=== PATIENT | male | born 1955 | race Caucasian/White ===

== ENCOUNTER 2019-11-24 09:37 | Emergency (ER) | payer MEDICARE, BC, OTHER ==
--- NOTE | 2019-11-24 09:50 | EDM.PDOC ---
ED HPI GENERAL MEDICAL PROBLEM - General Chief Complaint: Respiratory Problem Stated Complaint: SOB Time Seen by Provider: 11/24/19 09:48 - History of Present Illness INITIAL COMMENTS - FREE TEXT/NARRATIVE: 64-year-old male presents the emergency room with chest pain and shortness of breath. Patient does not have any prior coronary artery disease problems he does have hyperlipidemia. The patient awoke this morning with shortness of breath and chest discomfort chest discomfort is brought on by leaning forward and other positional changes. The patient has COPD and has a longstanding smoking history. He has a greater than [id number] history. The chest discomfort he describes is more of a pressure sensation underneath his sternum. This does not seem to radiate into his jaw or arms or elsewhere. The patient has used Viagra last used Thursday or Thursday now greater than 48 hours ago. Patient's family history is significant for valvular heart disease with an aortic valve replacement in his father and an aortic valve replacement in 1 of his sisters. The patient has good longevity in his family however he is the only smoker. Bilateral Chest Pain Score (Numeric/FACES): 7 - Related Data Allergies Allergy/AdvReac Type Severity Reaction Status Date / Time Sulfa (Sulfonamide Allergy Rash Verified 11/24/19 09:48 Antibiotics) Home Meds: Home Meds Albuterol Sulfate 1 dose INH QID PRN 11/24/19 [History] Fluticasone Propion/Salmeterol [Advair 250-50 Diskus] 1 puff INH BID 11/24/19 [ History] Fluticasone/Salmeterol [Advair 250-50] 1 puff INH BID #1 diskus 11/24/19 [Rx] Tiotropium [Spiriva HandiHaler] 1 puff INH DAILY 11/24/19 [History] atorvaSTATin [Lipitor] 10 mg PO DAILY 11/24/19 [History] ED ROS GENERAL - Review of Systems Review Of Systems: See Below Constitutional: Reports: No Symptoms HEENT: Reports: No Symptoms Respiratory: Reports: Shortness of Breath Cardiovascular: Reports: Chest Pain. Denies: Dyspnea on Exertion, Edema Endocrine: Reports: No Symptoms GI/Abdominal: Reports: Abdominal Pain (Has some upper abdominal discomfort) : Reports: No Symptoms Musculoskeletal: Reports: No Symptoms Skin: Reports: No Symptoms Neurological: Reports: No Symptoms ED EXAM, GENERAL - Physical Exam Exam: See Below Exam Limited By: No Limitations General Appearance: Alert, No Apparent Distress Eye Exam: Bilateral Eye: Normal Inspection, PERRL Ears: Normal External Exam, Normal Canal, Hearing Grossly Normal, Normal TMs Nose: Normal Inspection, Normal Mucosa, No Blood Throat/Mouth: Normal Inspection, Normal Lips, Normal Teeth, Normal Gums, Normal Oropharynx, Normal Voice, No Airway Compromise Head: Atraumatic, Normocephalic Neck: Normal Inspection, Supple, Non-Tender, Full Range of Motion, Other (No JVD ). No: Lymphadenopathy (L), Lymphadenopathy (R) Respiratory/Chest: No Respiratory Distress, Decreased Breath Sounds. No: Crackles, Rales, Rhonchi, Wheezing Cardiovascular: Regular Rate, Rhythm, Other (Very distant heart sounds no obvious murmur) GI/Abdominal: Normal Bowel Sounds, Soft, Other (Has some discomfort at the insertion of the abdominal wall musculature on the anterior and anterior lateral ribs) Back Exam: Normal Inspection. No: CVA Tenderness (L), CVA Tenderness (R) Extremities: Normal Inspection, No Pedal Edema Neurological: Alert, Oriented, Normal Cognition Course - Vital Signs Last Recorded V/S: Last Vital Signs Temp 36.3 C 11/24/19 09:44 Pulse 91 11/24/19 09:44 Resp 22 H 11/24/19 09:44 BP 140/89 11/24/19 10:21 Pulse Ox 88 L 11/24/19 09:44 - Orders/Labs/Meds Orders: Active Orders 24 hr Category Date Time Status EKG 12 Lead [EKG Documentation Completion] [RC] STAT Care 11/24/19 09:57 Active Ready for Discharge [RC] PER UNIT ROUTINE Care 11/24/19 14:58 Active Lactated Ringers [Ringers, Lactated] 1,000 ml Med 11/24/19 10:15 Active IV ASDIRECTED Nitroglycerin [Nitrostat] Med 11/24/19 10:08 Active 0.4 mg SL Q5M PRN Sodium Chloride 0.9% [Saline Flush] Med 11/24/19 10:01 Active 10 ml FLUSH ASDIRECTED PRN Saline Lock Insert [OM.PC] Routine Oth 11/24/19 10:01 Ordered Medication Orders Lactated Ringer's (Ringers, Lactated) 1,000 mls @ 25 mls/hr IV ASDIRECTED NIKI Last Admin: 11/24/19 10:18 Dose: 25 mls/hr Nitroglycerin (Nitrostat) 0.4 mg SL Q5M PRN PRN Reason: Chest Pain Last Admin: 11/24/19 10:21 Dose: 0.4 mg Sodium Chloride (Saline Flush) 10 ml FLUSH ASDIRECTED PRN PRN Reason: Keep Vein Open Last Admin: 11/24/19 10:02 Dose: 10 ml Labs: Laboratory Tests 11/24/19 11/24/19 11/24/19 Range/Units 09:50 09:50 09:50 WBC 11.69 H (4.23-9.07) K/mm3 RBC 5.83 (4.63-6.08) M/mm3 Hgb 17.3 (13.7-17.5) gm/dl Hct 51.3 H (40.1-51.0) % MCV 88.0 (79.0-92.2) fl MCH 29.7 (25.7-32.2) pg MCHC 33.7 (32.2-35.5) g/dl RDW Std Deviation 41.6 (35.1-43.9) fL Plt Count 302 (163-337) K/mm3 MPV 10.9 (9.4-12.3) fl Neut % (Auto) 73.4 H (34.0-67.9) % Lymph % (Auto) 17.4 L (21.8-53.1) % Barnwell % (Auto) 6.8 (5.3-12.2) % Eos % (Auto) 1.5 (0.8-7.0) Baso % (Auto) 0.3 (0.1-1.2) % Neut # (Auto) 8.57 H (1.78-5.38) K/mm3 Lymph # (Auto) 2.03 (1.32-3.57) K/mm3 Barnwell # (Auto) 0.80 (0.30-0.82) K/mm3 Eos # (Auto) 0.18 (0.04-0.54) K/mm3 Baso # (Auto) 0.04 (0.01-0.08) K/mm3 PT 10.3 (9.7-12.0) SECONDS INR 0.94 APTT 28 (22-31) SECONDS D-Dimer, Quantitative 0.32 (0.19-0.50) mg/L Sodium 141 (136-145) mEq/L Potassium 4.4 (3.5-5.1) mEq/L Chloride 105 (98-107) mEq/L Carbon Dioxide 29 (21-32) mEq/L Anion Gap 11.4 (5-15) BUN 12 (7-18) mg/dL Creatinine 0.9 (0.7-1.3) mg/dL Est Cr Clr Drug Dosing 81.83 mL/min Estimated GFR (MDRD) > 60 (>60) mL/min BUN/Creatinine Ratio 13.3 L (14-18) Glucose 130 H (80-115) mg/dL Calcium 9.1 (8.5-10.1) mg/dL Total Bilirubin 0.5 (0.2-1.0) mg/dL AST 23 (15-37) U/L ALT 30 (16-63) U/L Alkaline Phosphatase 47 (46-116) U/L Troponin I < 0.017 (0.00-0.056) ng/mL Total Protein 7.5 (6.4-8.2) g/dl Albumin 4.2 (3.4-5.0) g/dl Globulin 3.3 gm/dL Albumin/Globulin Ratio 1.3 (1-2) Meds: Medications Generic Name Dose Route Start Last Admin Trade Name Freq PRN Reason Stop Dose Admin Lactated Ringer's 1,000 mls @ 25 mls/hr 11/24/19 10:15 11/24/19 10:18 Ringers, Lactated IV 25 mls/hr ASDIRECTED NIKI Administration Nitroglycerin 0.4 mg 11/24/19 10:11/24/19 10:21 Nitrostat SL 0.4 mg Q5M PRN Administration Chest Pain Sodium Chloride 10 ml 11/24/19 10:01 11/24/19 10:02 Saline Flush FLUSH 10 ml ASDIRECTED PRN Administration Keep Vein Open Discontinued Medications Generic Name Dose Route Start Last Admin Trade Name Freq PRN Reason Stop Dose Admin Aspirin 324 mg 11/24/19 10:08 11/24/19 10:18 Aspirin PO 11/24/19 10:09 324 mg ONETIME ONE Administration Lidocaine HCl Confirm 11/24/19 11:00 Xylocaine 1% Administered 11/24/19 11:01 Dose 50 ml .ROUTE .[facility] ONE - Re-Assessments/Exams Free Text/Narrative Re-Assessment/Exam: 11/24/19 10:53 Patient's troponin is normal as is his d-dimer chest x-ray shows a significant left-sided pneumothorax. The patient is stable at this point. Dr. Clements is in surgery. If the patient decompensates I can put a chest tube in otherwise Dr. Clements will be in the department to see another patient here shortly. 11/24/19 11:50 Dr. Clements did evaluate the patient and assumed care patient had a pigtail catheter put in and the patient will be observed 11/24/19 14:49 Tyree placed a pigtail catheter and inflated the lung. The catheter was removed and follow-up chest x-ray shows a fully inflated lung the patient will be discharged. 11/24/19 14:59 The patient has requested Advair refill I did send this to [facility] Departure - Departure Time of Disposition: 11:52 Disposition: Home, Self-Care 01 Clinical Impression: Pneumothorax, left - Discharge Information Prescriptions: Fluticasone/Salmeterol [Advair 250-50] 1 puff INH BID #1 diskus Instructions: Pneumothorax Referrals: PCP,Not In Area [Primary Care Provider] - Forms: ED Department Discharge Additional Instructions: Return to the emergency room with any questions problems or worsening symptoms. Seek immediate medical care if symptoms return. No strenuous activity for the next week. Sepsis Event Note - Evaluation Sepsis Screening Result: Possible Sepsis Risk - Focused Exam Vital Signs: Vital Signs Temp Pulse Resp BP BP Pulse Ox 11/24/19 10:21 140/89 11/24/19 09:44 36.3 C 91 22 H 144/92 H 88 L Date Exam was Performed: 11/24/19 Time Exam was Performed: 14:59 - My Orders Last 24 Hours: My Active Orders 11/24/19 09:57 EKG 12 Lead [EKG Documentation Completion] [RC] STAT 11/24/19 10:01 Sodium Chloride 0.9% [Saline Flush] 10 ml FLUSH ASDIRECTED PRN Saline Lock Insert [OM.PC] Routine 11/24/19 10:08 Nitroglycerin [Nitrostat] 0.4 mg SL Q5M PRN 11/24/19 10:15 Lactated Ringers [Ringers, Lactated] 1,000 ml IV ASDIRECTED - Assessment/Plan Last 24 Hours: My Active Orders 11/24/19 09:57 EKG 12 Lead [EKG Documentation Completion] [RC] STAT 11/24/19 10:01 Sodium Chloride 0.9% [Saline Flush] 10 ml FLUSH ASDIRECTED PRN Saline Lock Insert [OM.PC] Routine 11/24/19 10:08 Nitroglycerin [Nitrostat] 0.4 mg SL Q5M PRN 11/24/19 10:15 Lactated Ringers [Ringers, Lactated] 1,000 ml IV ASDIRECTED
[2019-11-24] MEDS ORDERED: Sodium Chloride 0.9% 10 ML Syringe FLUSH PRN (10:01)
[2019-11-24] MEDS ORDERED: Aspirin 81 MG Tab.Chew PO ONE (10:08)
[2019-11-24] MEDS ORDERED: Nitroglycerin 0.4 MG Tab.SL SL PRN (10:08)
[2019-11-24] MEDS ORDERED: Lactated Ringers 1,000 ML IV SCH (10:15)
--- NOTE | 2019-11-24 10:29 | CR ---
Chest: Portable view of the chest was obtained. Comparison: No prior chest x-ray. Heart size and mediastinum are normal. Moderately large left sided pneumothorax is seen. Small amount of pleural fluid is also noted within the left base. Right lung is clear. Bony structures are unremarkable. Impression: 1. Moderate size left-sided pneumothorax with minimal amount of pleural air. I believe a chest tube is indicated. Diagnostic code #5 This report was dictated in MDT
[2019-11-24] MEDS ORDERED: Lidocaine 1% 50 ML MDV ONE (11:00)
--- NOTE | 2019-11-24 12:46 | CR ---
Chest: Portable view of the chest was obtained. Comparison: Prior chest x-ray performed earlier on the same day (9:53 AM). Left-sided pigtail catheter is seen. Previous left-sided pneumothorax has been evacuated. Atelectasis is seen within the left base. Heart size and mediastinum are normal. Right lung is clear. Bony structures show nothing acute. Impression: 1. Left-sided pigtail catheter with evacuation of previous pneumothorax. 2. Mild left basilar atelectasis is seen. Diagnostic code #2 This report was dictated in MDT
--- NOTE | 2019-11-24 14:39 | PCM.PRNOTE ---
- Free Text/Narrative Note: Date: 11/24/2019 Procedure: left chest pigtail catheter placement Indication: initial spontaneous left pneumothorax Findings: resolution of pneumothorax with pigtail placement Detailed Report: After signing informed consent, the patient was positioned supine with the left arm held above the head. The chest was prepped with chloraprep, and 20 cc 1% lidocaine was used for local anesthetic. A small stab incision was made, and the pigtail catheter was introduced into the left chest at a point even with the 5th intercostal space along the mid-axillary line. The introducer needle and stylet were removed as the catheter was completely inserted into the chest. This was connected to a Heimlich valve. Using the 3-way stopcock in the tubing, air was aspirated with a syringe as well. A post-procedure chest x-ray shows resolution of the pneumothorax. Plan for catheter removal and follow up chest x-ray. Nikolas Clements MD General Surgery
--- NOTE | 2019-11-24 14:44 | CR ---
Chest: Portable view of the chest was obtained. Comparison: Prior chest x-ray performed earlier on the same day (11:30 AM). Pigtail catheter has been removed. No pneumothorax is seen on current chest x-ray. Slight atelectasis within the left lung base is seen which is mildly improved from previous exam. Right lung is clear. Bony structures are unchanged. Impression: 1. Removal of left-sided pigtail catheter. No pneumothorax is seen on the left side. 2. Slight decreasing atelectasis within the left lung base. Diagnostic code #2 This report was dictated in MDT
== END 2019-11-24 15:00 | disposition home or self-care (01) ==
LOC: JD.ED 09:37
DX: J93.9 Pneumothorax, unspecified (principal); E78.5 Hyperlipidemia, unspecified; F17.210 Nicotine dependence, cigarettes, uncomplicated; Z88.2 Allergy status to sulfonamides; Z79.899 Other long term (current) drug therapy
CPT/HCPCS: 32554; 36415; 71045; 80053; 84484; 85025; 85379; 85610; 85730; 93005; 99285; A9270; C1729; J7120; 93010; 99284

== ENCOUNTER 2019-11-26 10:00 | Emergency (ER) | payer MEDICARE, OTHER ==
--- NOTE | 2019-11-26 10:27 | EDM.PDOC ---
<Phong Vega Ginna - Last Filed: 11/26/19 14:17> ED HPI GENERAL MEDICAL PROBLEM - General Chief Complaint: Respiratory Problem Stated Complaint: SOB Time Seen by Provider: 11/26/19 10:22 Source of Information: Reports: Patient History Limitations: Reports: No Limitations - History of Present Illness INITIAL COMMENTS - FREE TEXT/NARRATIVE: 64-year-old male presents to the hospital with dyspnea on minimal exertion. He states he can walk 10 to 15 yards before he is done in because of shortness of breath. Patient was seen through the ED on the morning of November 23, days ago and was discovered to have a 40% left-sided pneumothorax. For whatever reason he did not wish to stay in hospital did not wish to have a permanent chest tube placed. Dr. Nikolas Clements from the department of surgery was consulted and a pigtail stent was placed. It was left in place for 4 hours and the lung reinflated it was removed and a x-ray done 2 hours later he revealed that the lung remained inflated. Was therefore discharged to home. 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 No pleuritic chest pain on this occasion originally had pain underneath his left retrosternal area. Pain in the supraclavicular fossa left side. Note the patient has known COPD and continues to smoke cigarettes. [id number] history. Prior to rate was 22 upon arrival with O2 sats of 86% on room air. Patient placed on 2 L/min by nasal cannula of oxygen. Onset: Gradual (Over the last 24 hours) Onset Date: 11/24/19 (Woke with chest pain and shortness of breath on the morning of November 23 the discovered to have a left-sided pneumothorax of approximately 40%.) Duration: Hour(s):, Getting Worse Location: Reports: Chest (Left-sided chest discomfort and shortness of breath) Quality: Reports: Other Severity: Moderate (Barely dyspnea with very little chest pain or discomfort.) Improves with: Reports: Rest Worsens with: Reports: Other (Worse on minimal walking like 10 to 15 yards he becomes short severely short of breath.) Context: Reports: Other (Spontaneous pneumothorax 2 days ago). Denies: Activity , Exercise, Lifting, Sick Contact, Trauma Associated Symptoms: Reports: Cough, cough w sputum (More cough), Shortness of Breath. Denies: Diaphoresis, Fever/Chills ( occasional sputum production), Headaches, Loss of Appetite, Malaise, Nausea/Vomiting, Rash, Seizure, Syncope Treatments RADIOPHARMACIST: Reports: Other (see below) Other Treatments RADIOPHARMACIST: albuterol inhaler - Related Data Allergies Allergy/AdvReac Type Severity Reaction Status Date / Time Sulfa (Sulfonamide Allergy Rash Verified 11/26/19 10:13 Antibiotics) Home Meds: Home Meds Albuterol Sulfate 1 dose INH QID PRN 11/24/19 [History] Fluticasone/Salmeterol [Advair 250-50] 1 puff INH BID #1 diskus 11/24/19 [Rx] Tiotropium [Spiriva HandiHaler] 1 puff INH DAILY 11/24/19 [History] atorvaSTATin [Lipitor] 10 mg PO DAILY 11/24/19 [History] Past Medical History HEENT History: Reports: Other (See Below) Other HEENT History: pt wears glasses Cardiovascular History: Reports: High Cholesterol Respiratory History: Reports: COPD, Other (See Below) Other Respiratory History: emphysema Neurological History: Reports: Other (See Below) Other Neuro History: spasmotic dysphonia Psychiatric History: Reports: Anxiety - Infectious Disease History Infectious Disease History: Reports: Chicken Pox, Measles, Mumps - Past Surgical History GI Surgical History: Reports: Appendectomy Social & Family History - Family History Family Medical History: Noncontributory - Tobacco Use Smoking Status *Q: Current Every Day Smoker Years of Tobacco use: 50 Packs/Tins Daily: 1.5 - Caffeine Use Caffeine Use: Reports: Coffee, Tea - Recreational Drug Use Recreational Drug Use: No - Living Situation & Occupation Living situation: Reports: Single Occupation: Retired [employer] GENERAL - Review of Systems Review Of Systems: See Below Constitutional: Reports: Malaise, Fatigue, Decreased Appetite (Mildly affected appetite). Denies: Fever, Chills HEENT: Reports: No Symptoms Respiratory: Reports: Shortness of Breath, Cough (Smoker's cough), Sputum. Denies: Wheezing, Pleuritic Chest Pain, Hemoptysis Cardiovascular: Reports: Dyspnea on Exertion (Near 10 to 15 yards will play him out.). Denies: Chest Pain, Blood Pressure Problem, Claudication, Edema, Lightheadedness, Orthopnea Endocrine: Reports: No Symptoms GI/Abdominal: Reports: Decreased Appetite (Christ decreased appetite) : Reports: Frequency, Other Musculoskeletal: Reports: Back Pain, Other Skin: Reports: No Symptoms (Knee and shoulders and neck at times.) Neurological: Reports: No Symptoms Psychiatric: Reports: No Symptoms Hematologic/Lymphatic: Reports: No Symptoms ED EXAM, GENERAL - Physical Exam Exam: See Below Exam Limited By: Respiratory Distress General Appearance: Alert, WD/WN, Mild Distress (He is dyspneic and can speak 4- 5 words at a time.), Other (Mild temperature is 36.7 with a heart rate of 96. Respiratory to 22 with O2 sats of 86% on room air. Patient was placed on oxygen at 2 L/min. BP is 135/75) Eye Exam: Bilateral Eye: Normal Inspection, PERRL Throat/Mouth: Normal Inspection, Normal Lips, Normal Oropharynx Head: Atraumatic, Normocephalic Neck: Normal Inspection, Supple, Non-Tender, Full Range of Motion. No: Carotid Bruit, Lymphadenopathy (L), Lymphadenopathy (R) Respiratory/Chest: Respiratory Distress (Tachypnea at rest 22/min with O2 sats only 86% on room air. 4% on 3 L/min.), Decreased Breath Sounds (Creased air entry to the posterior 50% of the left lung field posteriorly and decreased breath sounds also anterior upper left chest. Mildly decreased breath sounds to the lung base as well.), Other (Patient has a bandage and ribbon tape over the left lateral chest fifth possible space at previous insertion of pigtail stent 2 days ago.) Cardiovascular: Normal Peripheral Pulses, Regular Rate, Rhythm, No Edema, No Gallop, No Murmur, No Rub Peripheral Pulses: 2+: Posterior Tibial (L), Posterior Tibial (R), Dorsalis Pedis (L), Dorsalis Pedis (R) GI/Abdominal: Normal Bowel Sounds, Soft, Non-Tender, No Organomegaly, Distended Back Exam: Normal Inspection, Other (Mild diffuse low back tenderness.). No: Full Range of Motion, CVA Tenderness (L), CVA Tenderness (R) Extremities: Normal Inspection, Normal Range of Motion, Non-Tender, No Pedal Edema, Normal Capillary Refill Neurological: Alert, Oriented, CN II-XII Intact, Normal Cognition Psychiatric: Normal Affect, Normal Mood Skin Exam: Warm, Dry, Intact, Normal Color, No Rash Course - Vital Signs Last Recorded V/S: Last Vital Signs Temp 97.2 F 11/26/19 17:45 Pulse 70 11/26/19 19:01 Resp 13 11/26/19 17:45 BP 116/73 11/26/19 19:01 Pulse Ox 95 11/26/19 19:01 - Orders/Labs/Meds Orders: Active Orders 24 hr Category Date Time Status Notify Provider Consults [RC] ASDIRECTED Care 11/26/19 10:57 Active Oxygen Therapy [RC] ASDIRECTED Care 11/26/19 10:54 Active Consult to Physician [CONS] Urgent Cons 11/26/19 10:56 Active Chest 1V Frontal [CR] Stat Exams 11/26/19 10:23 Taken Chest 1V Frontal [CR] Stat Exams 11/26/19 20:00 Taken Chest 1V-Tube Placement Chk NC [CR] Stat Exams 11/26/19 18:12 Taken Meds: Medications Discontinued Medications Generic Name Dose Route Start Last Admin Trade Name Nuris PRN Reason Stop Dose Admin Fentanyl 50 mcg 11/26/19 17:22 11/26/19 17:42 Sublimaze IVPUSH 11/26/19 17:23 50 mcg ONETIME ONE Administration Lidocaine/Epinephrine 20 ml 11/26/19 17:21 11/26/19 17:41 Xylocaine 1% With Epinephrine 1:100,000 INJECT 11/26/19 17:22 20 ml ONETIME ONE Administration - Radiology Interpretation Free Text/Narrative:: 64-year-old male presents to the ED with increased dyspnea on minimal exertion over the last 24 hours. Of note he was seen through the ED on November 23 2 days ago in the morning when he awoke he had shortness of breath and dyspnea. Chest x-ray done in the department revealed a 40% pneumothorax and a pigtail stent was placed by Dr. Clements from the department of surgery. The patient did not want to stay in the hospital and therefore he was monitored for a couple of hours and the lung stayed reinflated. The pigtail stent was then removed 4 hours apparently from insertion. On examination today he has decreased air entry to the posterior 50% of left lung field as well as anterior decreased breath sounds. His O2 sats are 86% on room air. Placed on 2 L/min by nasal cannula. This achieved O2 sats of 94%. Portable chest x-ray reveals recurrence of pneumothorax on the left side approximately 40 to 45% of the lung field involved. He will require repeat decompression of the chest. I will have Dr. Montilla on-call surgeon see him in consultation. We discussed on the phone the possibility of repeat pigtail stent with a Heimlich valve. Patient resides in [facility] and apparently they do have surgical capabilities. No labs were ordered today since they were done 2 days ago and there were no abnormalities appreciated. Particularly coags were normal. - Re-Assessments/Exams Free Text/Narrative Re-Assessment/Exam: 11/26/19 12:45 Dr Mercado did come and see the patient. Arms have arisen because there are no further pigtail stent available in the hospital. Apparently 2 were used 2 days ago for initial procedures pigtail stent placement. She is not keen on having a formal chest tube placed with underwater drainage as he would have to stay in the hospital. We are looking at options in terms of finding a pigtail stent or suitable stent with Heimlich valve capability in [place]. 11/26/19 14:17 staff member has left for [place] to poultry picker chest tube that can be attached to Heimlich valve. Patient will therefore stay in the department until the appropriate equipment arrives and then Dr Mercado will attend the patient with a view to reinsertion of chest tube decompress recurrent left-sided pneumothorax. Care will be transferred to as it is change of shift. Departure - Departure Disposition: Home, Self-Care 01 Clinical Impression: Pneumothorax, left - Discharge Information Referrals: PCP,Not In Area [Primary Care Provider] - Forms: ED Department Discharge Additional Instructions: Return to the closest emergency room with any questions problems or worsening symptoms. Follow-up with your regular physician early this next week. Take care of the drainage bag and the tube as we discussed. Seek immediate medical care if there is any signs of infection or you start developing a fever watch for redness around the dressing. Sepsis Event Note - Evaluation Sepsis Screening Result: Possible Sepsis Risk - Focused Exam Vital Signs: Vital Signs Temp Pulse Resp BP Pulse Ox 11/26/19 19:01 70 116/73 95 11/26/19 17:45 97.2 F 66 13 120/80 95 11/26/19 10:07 98.1 F 96 22 H 135/75 86 L Date Exam was Performed: 11/26/19 Time Exam was Performed: 14:17 <Ricardo Mares - Last Filed: 11/26/19 19:00> Course - Re-Assessments/Exams Free Text/Narrative Re-Assessment/Exam: 11/26/19 19:00 Dr. Mercado did come in when the equipment was available and inserted the catheter into the chest. Follow-up x-rays show good reexpansion albeit not complete reexpansion at this time. At this point we will reevaluate a repeat chest x-ray in 1 hour. At this time is change of shift further care and disposition per Dr. De Jesus Sepsis Event Note - Focused Exam Date Exam was Performed: 11/26/19 Time Exam was Performed: 19:00 <Varinder De Jesus - Last Filed: 11/26/19 20:32> Course - Re-Assessments/Exams Free Text/Narrative Re-Assessment/Exam: 11/26/19 20:[address] Mares. The repeat CXR shows a persistent pneumo. He is feeling good and his oxygen saturations are good. I will it is safe to send him home. He will be seeing his doctor on Thursday. Departure - Departure Time of Disposition: 20:35 Condition: Good - Discharge Information *PRESCRIPTION DRUG MONITORING PROGRAM REVIEWED*: Not Applicable *COPY OF PRESCRIPTION DRUG MONITORING REPORT IN PATIENT [facility]: Not Applicable Sepsis Event Note - Focused Exam Date Exam was Performed: 11/26/19 Time Exam was Performed: 20:30
[2019-11-26] MEDS ORDERED: Lidocaine 1% with EPINEPHrine 1:100,000 20 ML MDV INJECT ONE (17:21)
[2019-11-26] MEDS ORDERED: fentaNYL 100 MCG/2 ML SDV IVPUSH ONE (17:22)
--- NOTE | 2019-11-26 18:40 | PCM.CONS ---
H&P History of Present Illness - General Date of Service: 11/26/19 Source of Information: Patient, Provider History Limitations: Reports: No Limitations - History of Present Illness Initial Comments - Free Text/Narative: The patient is a 64 y/o male with history of COPD who presents with a recurrent pneumothorax. The patient was seen in the ED 2 days ago, and had temporary placement of a pigtail catheter for decompression of a left pneumothorax. The patient did not wish to stay in the hospital and [place]. The pigtail was removed and the patient was feeling well initially. One day ago he started noting shortness of breath again. The symptoms worsened and he presented for evaluation. The pt had a chest x-ray done in the ED that showed a left pneumothorax. - Related Data Allergies/Adverse Reactions: Allergies Allergy/AdvReac Type Severity Reaction Status Date / Time Sulfa (Sulfonamide Allergy Rash Verified 11/26/19 10:13 Antibiotics) Home Medications: Home Meds Albuterol Sulfate 1 dose INH QID PRN 11/24/19 [History] Fluticasone/Salmeterol [Advair 250-50] 1 puff INH BID #1 diskus 11/24/19 [Rx] Tiotropium [Spiriva HandiHaler] 1 puff INH DAILY 11/24/19 [History] atorvaSTATin [Lipitor] 10 mg PO DAILY 11/24/19 [History] Past Medical History HEENT History: Reports: Other (See Below) Other HEENT History: pt wears glasses Cardiovascular History: Reports: High Cholesterol Respiratory History: Reports: COPD, Other (See Below) Other Respiratory History: emphysema Neurological History: Reports: Other (See Below) Other Neuro History: spasmotic dysphonia Psychiatric History: Reports: Anxiety - Infectious Disease History Infectious Disease History: Reports: Chicken Pox, Measles, Mumps - Past Surgical History GI Surgical History: Reports: Appendectomy Social & Family History - Family History Other Cardiac Family History: valvular disease - Tobacco Use Smoking Status *Q: Current Every Day Smoker Years of Tobacco use: 50 Packs/Tins Daily: 1.5 - Caffeine Use Caffeine Use: Reports: Coffee, Tea - Recreational Drug Use Recreational Drug Use: No - Living Situation & Occupation Living situation: Reports: Single Occupation: Retired H&P Review of Systems - Review of Systems: Review Of Systems: See Below General: Reports: No Symptoms HEENT: Reports: No Symptoms Pulmonary: Reports: Shortness of Breath. Denies: Cough Cardiovascular: Reports: Dyspnea on Exertion Gastrointestinal: Reports: No Symptoms Genitourinary: Reports: No Symptoms Musculoskeletal: Reports: No Symptoms Skin: Reports: No Symptoms Neurological: Reports: No Symptoms Hematologic/Lymphatic: Reports: No Symptoms Exam - Exam Exam: See Below - Vital Signs Vital Signs: Last Vital Signs Temp 36.7 C 11/26/19 10:07 Pulse 96 11/26/19 10:07 Resp 22 H 11/26/19 10:07 BP 135/75 11/26/19 10:07 Pulse Ox 86 L 11/26/19 10:07 Weight: 86.183 kg - Exam Quality Assessment: Supplemental Oxygen General: Alert, Oriented HEENT: Conjunctiva Clear, EOMI Neck: Supple Lungs: No: Normal Respiratory Effort (increased respiratory effort) Cardiovascular: Regular Rate, Regular Rhythm GI/Abdominal Exam: No Distention Extremities: Normal Inspection Skin: Warm, Dry, Intact, Other (subcutaneous emphysema at site of previous chest tube) Neurological: Cranial Nerves Intact Neuro Extensive - Mental Status: Normal Mood/Affect Sepsis Event Note - Evaluation Sepsis Screening Result: Possible Sepsis Risk - Focused Exam Vital Signs: Vital Signs Temp Pulse Resp BP Pulse Ox 11/26/19 10:07 36.7 C 96 22 H 135/75 86 L Date Exam was Performed: 11/26/19 Time Exam was Performed: 18:41 *Q Meaningful Use (ADM) - VTE Risk Assess *Q Each Risk Factor Represents 2 Points: Age 60 - 74 Years Total Score 2 Point Risk Factors: 2 Consult PN Assessment/Plan (1) Pneumothorax, left SNOMED Code(s): 901044219 Code(s): J93.9 - PNEUMOTHORAX, UNSPECIFIED Current Visit: No Problem List Initiated/Reviewed/Updated: Yes Plan: 64 y/o male with left pneumothorax - plan for pigtail catheter with placement of a hemlich valve to allow pt to travel home - discussed risks of lung injury, and written consent was obtained - NPO Pt to follow up with his PCP on Thursday (in 2d) when he reaches home to monitor the tube and discuss removal Minoo Caceres MD General Surgery
--- NOTE | 2019-11-26 18:52 | PCM.PRNOTE ---
- Free Text/Narrative Note: Date: November 26, 2019 Pre-procedure diagnosis: Left pneumothorax Post-procedure diagnosis: Same Procedure: Placement of left tube thoracostomy Surgeon: Minoo Caceres MD Anesthesia: Fentanyl 50 mcg and 1% lidocaine with epinephrine Estimated blood loss: 1mL Indication: The patient is a 64-year-old male with recurrent left pneumothorax. He was symptomatic and unable to walk more than 10 to 15 feet. We discussed placement of a left chest tube. Discussed risk of lung injury. His written consent was obtained Description of the procedure: A time-out was completed verifying correct patient, procedure, and site. The patient was positioned appropriately for chest tube placement. The patients left chest was prepped and draped in sterile fashion. 1% Lidocaine with epinephrine was used to anesthetize the surrounding skin area. A 20-gauge spinal needle was then inserted into the left chest and tracked up the rib to locate the intercostal space. It was then inserted into the pleural cavity with withdrawal of air. The spinal needle was then removed and the placement marked at which we were able to inserted into the chest. A 4mm abdelrahman was made in the skin at tghe site. We then took the 9F pigtail catheter with its needle trochar in place, and inserted it into the chest to the same depth as we found with the spinal needle. The trocar was removed and we had a locke of air. We then removed the needle while inserting the chest tube further into the pleural space. It was secured using a silk suture. The pigtail was then connected to tubing with a stopcock. A Heimlich valve was then attached with a drainage bag. An occlusive dressing was applied. A chest x -ray was obtained. The patient tolerated the procedure well and there were no complications noted. Minoo Caceres MD General Surgery
--- NOTE | 2019-11-27 09:41 | CR ---
Chest: Portable view of the chest was obtained. Comparison: Prior chest x-ray of 11/24/19. Moderate size left-sided pneumothorax is seen. Subcutaneous air is noted within the left chest wall. Slight atelectasis seen within the left lung base. Right lung is clear. Heart size and mediastinum are normal. Bony structures are grossly intact. Impression: 1. Moderate size left-sided pneumothorax. This is an interval change from most recent study. 2. Mild left basilar atelectasis. 3. Subcutaneous air within the left chest. Diagnostic code #5 This report was dictated in MDT
--- NOTE | 2019-11-27 10:19 | CR ---
Chest: Portable view of the chest was obtained in inspiration and expiration (time 10:13 AM. Left sided pneumothorax has decreased in size. Small pneumothorax is noted within the left base. Subcutaneous air is seen within the left chest wall. Persisting atelectasis within the left lung base is noted. Right lung is clear. Heart size and mediastinum are normal. No gross bony abnormality is seen. Impression: 1. Decreased size of left-sided pneumothorax from most recent exam with small left basilar pneumothorax remaining. 2. Continuing air within the left chest wall as well as mild left basilar atelectasis. Diagnostic code #3 This report was dictated in MDT
--- NOTE | 2019-11-27 10:22 | CR ---
Chest: Portable view of the chest was obtained at time 7:40 PM. Comparison: Prior chest x-ray performed earlier on the same day (6:26 PM). Increasing subcutaneous air within the left chest is seen. Slight persisting atelectasis within the left lung base. Mild to moderate left-sided pneumothorax is seen increased in size from most recent exam. Right lung is clear. Heart size and mediastinum are stable. Impression: 1. Left sided pneumothorax slightly increased in size from most recent exam. Small caliber chest tube appears to be present. 2. Persisting atelectasis. Diagnostic code #5 This report was dictated in MDT
== END 2019-11-26 20:40 | disposition home or self-care (01) ==
LOC: JD.ED 10:00
DX: J93.9 Pneumothorax, unspecified (principal); E78.00 Pure hypercholesterolemia, unspecified; J44.9 Chronic obstructive pulmonary disease, unspecified; Z88.2 Allergy status to sulfonamides; F17.210 Nicotine dependence, cigarettes, uncomplicated
CPT/HCPCS: 32551; 71045; 96374; 99284; J3010

== ENCOUNTER 2019-11-27 02:45 | Inpatient (IN) | payer MEDICARE, OTHER, BC ==
[2019-11-27] MEDS ORDERED: Sodium Chloride 0.9% 10 ML Syringe FLUSH PRN ×2 (02:55→05:09)
--- NOTE | 2019-11-27 03:08 | EDM.PDOC ---
ED HPI GENERAL MEDICAL PROBLEM - General Chief Complaint: Respiratory Problem Stated Complaint: SOB Time Seen by Provider: 11/27/19 02:47 Source of Information: Reports: Patient History Limitations: Reports: No Limitations - History of Present Illness INITIAL COMMENTS - FREE TEXT/NARRATIVE: The patient presents with more shortness of breath and swelling in his neck and chest. He was here on the 23 of November and had a pneumothorax. Dr Clements put a pig tail cath in and drained the pneumo. He came back yesterday the and he had more pneumo again. He was here about 9 hours because someone from our staff had to run to [facility] to get a chest tube to use. He had an x-ray before he left and there was no more of a pneumo. He has low oxygen saturations now. He does have a history of COPD and he had a bleb burst is what they thought yesterday. Onset: Gradual Duration: Day(s): Location: Reports: Chest Quality: Reports: Sharp Severity: Mild Improves with: Reports: None Worsens with: Reports: None Associated Symptoms: Reports: Chest Pain, Shortness of Breath. Denies: Cough, Fever/Chills, Headaches, Nausea/Vomiting - Related Data Allergies Allergy/AdvReac Type Severity Reaction Status Date / Time Sulfa (Sulfonamide Allergy Rash Verified 11/26/19 10:13 Antibiotics) Home Meds: Home Meds Albuterol Sulfate 1 dose INH QID PRN 11/24/19 [History] Fluticasone/Salmeterol [Advair 250-50] 1 puff INH BID #1 diskus 11/24/19 [Rx] Tiotropium [Spiriva HandiHaler] 1 puff INH DAILY 11/24/19 [History] atorvaSTATin [Lipitor] 10 mg PO DAILY 11/24/19 [History] Past Medical History HEENT History: Reports: Other (See Below) Other HEENT History: pt wears glasses Cardiovascular History: Reports: High Cholesterol Respiratory History: Reports: COPD, Other (See Below) Other Respiratory History: emphysema Neurological History: Reports: Other (See Below) Other Neuro History: spasmotic dysphonia Psychiatric History: Reports: Anxiety - Infectious Disease History Infectious Disease History: Reports: Chicken Pox, Measles, Mumps - Past Surgical History GI Surgical History: Reports: Appendectomy Social & Family History - Family History Family Medical History: Noncontributory Other Cardiac Family History: valvular disease - Caffeine Use Caffeine Use: Reports: Coffee, Tea - Living Situation & Occupation Living situation: Reports: Single Occupation: Retired ED ROS GENERAL - Review of Systems Review Of Systems: See Below Constitutional: Reports: No Symptoms HEENT: Reports: No Symptoms Respiratory: Reports: Shortness of Breath Cardiovascular: Reports: Chest Pain Endocrine: Reports: No Symptoms GI/Abdominal: Reports: No Symptoms : Reports: No Symptoms Musculoskeletal: Reports: No Symptoms ED EXAM, GENERAL - Physical Exam Exam: See Below Exam Limited By: No Limitations General Appearance: Alert, No Apparent Distress Ears: Normal External Exam Nose: Normal Inspection Head: Atraumatic, Normocephalic Neck: Other (Edema and subcutaneous air to the left neck) Respiratory/Chest: No Respiratory Distress, Decreased Breath Sounds (on the left with subcutaneous air) Cardiovascular: Regular Rate, Rhythm, No Edema, No Murmur GI/Abdominal: Soft, Non-Tender, No Organomegaly, No Mass Extremities: Normal Inspection Course - Vital Signs Last Recorded V/S: Last Vital Signs Temp 97.1 F 11/27/19 02:56 Pulse 89 11/27/19 02:56 Resp 22 H 11/27/19 02:56 BP 121/82 11/27/19 02:56 Pulse Ox 93 L 11/27/19 02:56 - Orders/Labs/Meds Orders: Active Orders 24 hr Category Date Time Status Cardiac Monitoring [RC] . DIRECTED Care 11/27/19 02:55 Active Oxygen Therapy [RC] PRN Care 11/27/19 02:55 Active Peripheral IV Care [RC] . DIRECTED Care 11/27/19 02:56 Active CXR [Chest 1V Frontal] [CR] Stat Exams 11/27/19 02:53 Taken Sodium Chloride 0.9% [Saline Flush] Med 11/27/19 02:55 Active 10 ml FLUSH ASDIRECTED PRN Peripheral IV Insertion Adult [OM.PC] Stat Oth 11/27/19 02:55 Ordered Medication Orders Sodium Chloride (Saline Flush) 10 ml FLUSH ASDIRECTED PRN PRN Reason: Keep Vein Open Last Admin: 11/27/19 02:59 Dose: 10 ml Labs: Laboratory Tests 11/27/19 11/27/19 Range/Units 02:55 02:55 WBC 16.87 H (4.23-9.07) K/mm3 RBC 5.96 (4.63-6.08) M/mm3 Hgb 17.7 H (13.7-17.5) gm/dl Hct 52.8 H (40.1-51.0) % MCV 88.6 (79.0-92.2) fl MCH 29.7 (25.7-32.2) pg MCHC 33.5 (32.2-35.5) g/dl RDW Std Deviation 41.7 (35.1-43.9) fL Plt Count 300 (163-337) K/mm3 MPV 10.4 (9.4-12.3) fl Neut % (Auto) 80.6 H (34.0-67.9) % Lymph % (Auto) 12.3 L (21.8-53.1) % Esmeralda % (Auto) 5.6 (5.3-12.2) % Eos % (Auto) 0.9 (0.8-7.0) Baso % (Auto) 0.1 (0.1-1.2) % Neut # (Auto) 13.59 H (1.78-5.38) K/mm3 Lymph # (Auto) 2.08 (1.32-3.57) K/mm3 Esmeralda # (Auto) 0.95 H (0.30-0.82) K/mm3 Eos # (Auto) 0.15 (0.04-0.54) K/mm3 Baso # (Auto) 0.02 (0.01-0.08) K/mm3 Manual Slide Review Normal smear Sodium 141 (136-145) mEq/L Potassium 4.3 (3.5-5.1) mEq/L Chloride 104 (98-107) mEq/L Carbon Dioxide 29 (21-32) mEq/L Anion Gap 12.3 (5-15) BUN 20 H (7-18) mg/dL Creatinine 1.1 (0.7-1.3) mg/dL Est Cr Clr Drug Dosing 66.95 mL/min Estimated GFR (MDRD) > 60 (>60) mL/min BUN/Creatinine Ratio 18.2 H (14-18) Glucose 110 (80-115) mg/dL Calcium 9.0 (8.5-10.1) mg/dL Total Bilirubin 0.6 (0.2-1.0) mg/dL AST 17 (15-37) U/L ALT 33 (16-63) U/L Alkaline Phosphatase 49 (46-116) U/L Troponin I < 0.017 (0.00-0.056) ng/mL Total Protein 7.2 (6.4-8.2) g/dl Albumin 3.9 (3.4-5.0) g/dl Globulin 3.3 gm/dL Albumin/Globulin Ratio 1.2 (1-2) Meds: Medications Generic Name Dose Route Start Last Admin Trade Name Freq PRN Reason Stop Dose Admin Sodium Chloride 10 ml 11/27/19 02:55 11/27/19 02:59 Saline Flush FLUSH 10 ml ASDIRECTED PRN Administration Keep Vein Open - Re-Assessments/Exams Free Text/Narrative Re-Assessment/Exam: 11/27/19 03:08 I ordered oxygen and an IV, labs and a CXR. The CXR shows a worsened pneumo and subcutaneous air. I called Dr Mercado and she wanted us to try a pleural vac and see if that helps. 11/27/19 03:31 His WBC is elevated at 16.87. His CMP looks good. His troponin is negative. My nurses hooked it up to the pleural vac and there was continuous air bubbles. She thought this may be related to the amount of air coming out of the tube. If this continues she wants a repeat CXR in 2 hours if not a CXR in the morning. She will be admitting him. I have written bridging orders. Departure - Departure Time of Disposition: 03:35 Disposition: Refer to Observation Condition: Fair Clinical Impression: Pneumothorax, left - Discharge Information Forms: ED Department Discharge Sepsis Event Note - Evaluation Sepsis Screening Result: No Definite Risk - Focused Exam Vital Signs: Vital Signs Temp Pulse Resp BP Pulse Ox 11/27/19 02:56 97.1 F 89 22 H 121/82 93 L Date Exam was Performed: 11/27/19 Time Exam was Performed: 03:31 - My Orders Last 24 Hours: My Active Orders 11/27/19 02:53 CXR [Chest 1V Frontal] [CR] Stat 11/27/19 02:55 Cardiac Monitoring [RC] . DIRECTED Oxygen Therapy [RC] PRN Sodium Chloride 0.9% [Saline Flush] 10 ml FLUSH ASDIRECTED PRN Peripheral IV Insertion Adult [OM.PC] Stat 11/27/19 02:56 Peripheral IV Care [RC] . DIRECTED - Assessment/Plan Last 24 Hours: My Active Orders 11/27/19 02:53 CXR [Chest 1V Frontal] [CR] Stat 11/27/19 02:55 Cardiac Monitoring [RC] . DIRECTED Oxygen Therapy [RC] PRN Sodium Chloride 0.9% [Saline Flush] 10 ml FLUSH ASDIRECTED PRN Peripheral IV Insertion Adult [OM.PC] Stat 11/27/19 02:56 Peripheral IV Care [RC] . DIRECTED
[2019-11-27] MEDS: Acetaminophen 325 MG Tab PO PRN ×2 (05:09→19:58)
[2019-11-27] MEDS ORDERED: ALBUTEROL INH PRN (09:30)
--- NOTE | 2019-11-27 10:06 | PCM.HP.2 ---
H&P History of Present Illness - General Date of Service: 11/27/19 Admit Problem/Dx: Admission Diagnosis/Problem Admission Diagnosis/Problem Pneumothorax Source of Information: Patient, Provider History Limitations: Reports: No Limitations - History of Present Illness Initial Comments - Free Text/Narative: 64 y/o male with a pneumothorax who presents with extensive subcutaneous emphysema. He was seen in the ED yesterday and had a 9F catheter placed with a Heimlich valve to allow him to travel home. He had improvement of the pneumothorax at the time of the placement yesterday, and was discharged home. He awakened today to have pain in his chest and neck, with both ears "blocked." He also notes vocal changes He was seen in the ED and repeat CXR showed re-accumulation of the pneumothorax. He had a chest tube placed to suction, which showed a large improvement/resolution on follow up CXR. - Related Data Allergies/Adverse Reactions: Allergies Allergy/AdvReac Type Severity Reaction Status Date / Time Sulfa (Sulfonamide Allergy Rash Verified 11/26/19 10:13 Antibiotics) Home Medications: Home Meds Fluticasone/Salmeterol [Advair 250-50] 1 puff INH BID #1 diskus 11/24/19 [Rx] Tiotropium [Spiriva HandiHaler] 1 puff INH DAILY 11/24/19 [History] atorvaSTATin [Lipitor] 10 mg PO DAILY 11/24/19 [History] Albuterol [Proair HFA] 2 puff INH Q4HR PRN 11/27/19 [History] Past Medical History HEENT History: Reports: Other (See Below) Other HEENT History: pt wears glasses Cardiovascular History: Reports: High Cholesterol Respiratory History: Reports: COPD, Other (See Below) Other Respiratory History: emphysema Gastrointestinal History: Reports: None Neurological History: Reports: Other (See Below) Other Neuro History: spasmotic dysphonia Psychiatric History: Reports: Anxiety - Infectious Disease History Infectious Disease History: Reports: Chicken Pox, Measles, Mumps - Past Surgical History HEENT Surgical History: Reports: None Cardiovascular Surgical History: Reports: None Respiratory Surgical History: Reports: None GI Surgical History: Reports: Appendectomy Neurological Surgical History: Reports: None Social & Family History - Family History Cardiac: Reports: Other (See Below) Other Cardiac Family History: valvular disease - Tobacco Use Smoking Status *Q: Current Every Day Smoker Years of Tobacco use: 50 Packs/Tins Daily: 1 Used Tobacco, but Quit: No Second Hand Smoke Exposure: No - Caffeine Use Caffeine Use: Reports: Coffee - Recreational Drug Use Recreational Drug Use: No - Living Situation & Occupation Living situation: Reports: Single Occupation: Retired H&P Review of Systems - Review of Systems: Review Of Systems: See Below General: Reports: No Symptoms HEENT: Reports: No Symptoms Pulmonary: Reports: Shortness of Breath Cardiovascular: Reports: No Symptoms Gastrointestinal: Reports: No Symptoms Genitourinary: Reports: No Symptoms Musculoskeletal: Reports: No Symptoms Skin: Reports: Other (subcutaneous emphysema and swelling) Neurological: Reports: No Symptoms Hematologic/Lymphatic: Reports: No Symptoms Exam - Exam Exam: See Below - Vital Signs Vital Signs: Last Vital Signs Temp 36.8 C 11/27/19 04:30 Pulse 74 11/27/19 04:30 Resp 12 11/27/19 04:30 BP 119/82 11/27/19 04:30 Pulse Ox 97 11/27/19 04:30 Weight: 84.867 kg - Exam Quality Assessment: Supplemental Oxygen General: Alert, Oriented HEENT: Conjunctiva Clear, EOMI, Other (increased vocal resonance) Neck: Supple Lungs: Other (CT to suction with 1 chamber air leak. No significant drainage). No: Normal Respiratory Effort GI/Abdominal Exam: Soft, Non-Tender Extremities: Normal Inspection, No Pedal Edema Skin: Other (subcutaneous emphysema) Neurological: Cranial Nerves Intact Neuro Extensive - Mental Status: Normal Mood/Affect - Patient Data Lab Results Last 24 hrs: Laboratory Results - last 24 hr 11/27/19 11/27/19 Range/Units 02:55 02:55 WBC 16.87 H (4.23-9.07) K/mm3 RBC 5.96 (4.63-6.08) M/mm3 Hgb 17.7 H (13.7-17.5) gm/dl Hct 52.8 H (40.1-51.0) % MCV 88.6 (79.0-92.2) fl MCH 29.7 (25.7-32.2) pg MCHC 33.5 (32.2-35.5) g/dl RDW Std Deviation 41.7 (35.1-43.9) fL Plt Count 300 (163-337) K/mm3 MPV 10.4 (9.4-12.3) fl Neut % (Auto) 80.6 H (34.0-67.9) % Lymph % (Auto) 12.3 L (21.8-53.1) % Reeves % (Auto) 5.6 (5.3-12.2) % Eos % (Auto) 0.9 (0.8-7.0) Baso % (Auto) 0.1 (0.1-1.2) % Neut # (Auto) 13.59 H (1.78-5.38) K/mm3 Lymph # (Auto) 2.08 (1.32-3.57) K/mm3 Reeves # (Auto) 0.95 H (0.30-0.82) K/mm3 Eos # (Auto) 0.15 (0.04-0.54) K/mm3 Baso # (Auto) 0.02 (0.01-0.08) K/mm3 Manual Slide Review Normal smear Sodium 141 (136-145) mEq/L Potassium 4.3 (3.5-5.1) mEq/L Chloride 104 (98-107) mEq/L Carbon Dioxide 29 (21-32) mEq/L Anion Gap 12.3 (5-15) BUN 20 H (7-18) mg/dL Creatinine 1.1 (0.7-1.3) mg/dL Est Cr Clr Drug Dosing 66.95 mL/min Estimated GFR (MDRD) > 60 (>60) mL/min BUN/Creatinine Ratio 18.2 H (14-18) Glucose 110 (80-115) mg/dL Calcium 9.0 (8.5-10.1) mg/dL Total Bilirubin 0.6 (0.2-1.0) mg/dL AST 17 (15-37) U/L ALT 33 (16-63) U/L Alkaline Phosphatase 49 (46-116) U/L Troponin I < 0.017 (0.00-0.056) ng/mL Total Protein 7.2 (6.4-8.2) g/dl Albumin 3.9 (3.4-5.0) g/dl Globulin 3.3 gm/dL Albumin/Globulin Ratio 1.2 (1-2) Result Diagrams: 11/27/19 02:55 11/27/19 02:55 Sepsis Event Note - Evaluation Sepsis Screening Result: No Definite Risk - Focused Exam Vital Signs: Vital Signs Temp Temp Pulse Pulse Resp BP BP 11/27/19 04:30 36.8 C 74 12 119/82 11/27/19 02:56 36.2 C 89 22 H 121/82 Pulse Ox 11/27/19 04:30 97 11/27/19 02:56 93 L Date Exam was Performed: 11/27/19 Time Exam was Performed: 10:15 *Q Meaningful Use (ADM) - VTE Risk Assess *Q Each Risk Factor Represents 2 Points: Age 60 - 74 Years Total Score 2 Point Risk Factors: 2 - Problem List (1) Pneumothorax, left SNOMED Code(s): 068610566 ICD Code: J93.9 - PNEUMOTHORAX, UNSPECIFIED Status: Acute Current Visit: Yes Problem List Initiated/Reviewed/Updated: Yes Orders Last 24hrs: Active Orders 24 hr Category Date Time Status Patient Status [ADT] Routine ADT 11/27/19 04:22 Active Bedrest Bathroom Privileges [RC] ASDIRECTED Care 11/27/19 05:09 Active Communication Order [RC] BID Care 11/27/19 08:00 Active Oxygen Therapy [RC] PRN Care 11/27/19 02:55 Active Regular Diet [DIET] Diet 11/27/19 Breakfast Active CXR [Chest 1V Frontal] [CR] Routine Exams 11/27/19 07:00 Taken CXR [Chest 1V Frontal] [CR] Stat Exams 11/27/19 02:53 Taken Acetaminophen [Tylenol] Med 11/27/19 04:34 Active 975 mg PO Q4H PRN Sodium Chloride 0.9% [Saline Flush] Med 11/27/19 02:55 Active 10 ml FLUSH ASDIRECTED PRN Sodium Chloride 0.9% [Saline Flush] Med 11/27/19 05:09 Active 10 ml FLUSH ASDIRECTED PRN Convert IV to Saline Lock [OM.PC] Routine Oth 11/27/19 05:09 Ordered Code Status [Resuscitation Status] Routine Resus Stat 11/27/19 05:08 Ordered Medication Orders Acetaminophen (Tylenol) 975 mg PO Q4H PRN PRN Reason: Pain Last Admin: 11/27/19 05:09 Dose: 975 mg Sodium Chloride (Saline Flush) 10 ml FLUSH ASDIRECTED PRN PRN Reason: Keep Vein Open Last Admin: 11/27/19 02:59 Dose: 10 ml Sodium Chloride (Saline Flush) 10 ml FLUSH ASDIRECTED PRN PRN Reason: Keep Vein Open Assessment/Plan Comment:: 64 y/o male with pneumothorax - CT to suction for 48 hours - daily CXR - will monitor leukocytosis, likely from physiologic stress and extensive subcutaneous emphysema - regular diet - pain control with PO ibuprofen and acetaminophen, breakthrough IV morphine Minoo Caceres MD General surgery - Mortality Measure Prognosis:: Good
--- NOTE | 2019-11-27 10:23 | CR ---
Chest: Portable view of the chest was obtained. Study obtained at time 2:43 AM) Comparison: Previous chest x-rays of 11/26/19. Left-sided pneumothorax is seen. Size of this pneumothorax has increased from prior exam. Right lung is clear. Persisting atelectasis within the left chest. Increasing subcutaneous air within the left chest wall. Impression: 1. Left-sided pneumothorax increased in size from most recent exam. 2. Increasing subcutaneous air within the left chest wall also noted. Diagnostic code #5 This report was dictated in MDT
--- NOTE | 2019-11-27 10:25 | CR ---
Chest: Portable view of the chest was obtained at time 7:30 AM. Comparison: Previous chest x-ray performed earlier on the same day (2:43 AM). Increasing subcutaneous air within the left chest is seen as well as base of the right neck. No definite pneumothorax is appreciated on this exam. Small caliber chest tube is seen. Slight atelectasis within the left base. Heart size and mediastinum are normal. Impression: 1. Increased subcutaneous air within the left chest as well as a small amount of subcutaneous air within the base of the right neck. 2. No definite pneumothorax on this exam. 3. Small caliber chest tube remains. 4. Areas of atelectasis. Diagnostic code #3 This report was dictated in MDT
[2019-11-27] MEDS: Morphine 2 MG/ML SYRINGE IVPUSH PRN ×2 (10:29→14:35)
[2019-11-27] MEDS: ATORVASTATIN 10 MG PO SCH (10:30)
[2019-11-27] MEDS: ADVAIR INH SCH ×2 (10:52→20:16)
[2019-11-27] MEDS: TIOTROPIUM INH SCH (10:53)
[2019-11-27] MEDS: Benzocaine/Cetylpyridinium/Menthol Lozenge MUCMEM PRN ×3 (10:59→20:23)
[2019-11-27] MEDS: Ibuprofen 600 MG Tab PO PRN (15:58)
[2019-11-27] MEDS: Heparin Sodium 5,000 Units/ML Vial SUBCUT SCH (15:59)
[2019-11-28] MEDS: Ibuprofen 600 MG Tab PO PRN ×3 (00:17→16:37)
[2019-11-28] MEDS: Heparin Sodium 5,000 Units/ML Vial SUBCUT SCH ×3 (00:17→16:38)
[2019-11-28] MEDS: Benzocaine/Cetylpyridinium/Menthol Lozenge MUCMEM PRN (00:17)
[2019-11-28] MEDS: Acetaminophen 325 MG Tab PO PRN ×3 (05:35→21:10)
--- NOTE | 2019-11-28 07:15 | PCM.SURGPN ---
- General Info Date of Service: 11/28/19 Functional Status: Reports: Pain Controlled, Tolerating Diet, Other ( subcutaneous emphysema is improved) - Patient Data Vitals - Most Recent: Last Vital Signs Temp 36.7 C 11/28/19 05:11 Pulse 67 11/28/19 05:28 Resp 16 11/28/19 05:11 BP 135/100 H 11/28/19 05:11 Pulse Ox 93 L 11/28/19 05:28 Weight - Most Recent: 86.183 kg I&O - Last 24 Hours: Intake & Output 11/27/19 11/28/19 11/28/19 22:59 06:59 14:59 Intake Total 880 450 Output Total 725 812 Balance 155 -362 Lab Results Last 24 Hrs: Laboratory Results - last 24 hr 11/28/19 Range/Units 05:07 WBC 9.93 H (4.23-9.07) K/mm3 RBC 5.54 (4.63-6.08) M/mm3 Hgb 16.4 (13.7-17.5) gm/dl Hct 49.2 (40.1-51.0) % MCV 88.8 (79.0-92.2) fl MCH 29.6 (25.7-32.2) pg MCHC 33.3 (32.2-35.5) g/dl RDW Std Deviation 40.9 (35.1-43.9) fL Plt Count 268 (163-337) K/mm3 MPV 11.0 (9.4-12.3) fl Neut % (Auto) 77.7 H (34.0-67.9) % Lymph % (Auto) 15.3 L (21.8-53.1) % Grady % (Auto) 4.3 L (5.3-12.2) % Eos % (Auto) 1.6 (0.8-7.0) Baso % (Auto) 0.1 (0.1-1.2) % Neut # (Auto) 7.71 H (1.78-5.38) K/mm3 Lymph # (Auto) 1.52 (1.32-3.57) K/mm3 Grady # (Auto) 0.43 (0.30-0.82) K/mm3 Eos # (Auto) 0.16 (0.04-0.54) K/mm3 Baso # (Auto) 0.01 (0.01-0.08) K/mm3 Med Orders - Current: Current Medications Acetaminophen (Tylenol) 975 mg PO Q4H PRN PRN Reason: Pain Last Admin: 11/28/19 05:35 Dose: 975 mg Albuterol (Proventil Hfa) 0 gm INH Q4HR PRN PRN Reason: Shortness of Breath Benzocaine/Menthol (Cepacol Sore Throat) 1 lozenge MUCMEM Q2H PRN PRN Reason: Sore Throat Last Admin: 11/28/19 00:17 Dose: 1 lozenge Heparin Sodium (Porcine) (Heparin Sodium) 5,000 units SUBCUT Q8H [facility] Last Admin: 11/28/19 00:17 Dose: 5,000 units Ibuprofen (Motrin) 600 mg PO Q6H PRN PRN Reason: Pain (mild 1-3) Last Admin: 11/28/19 00:17 Dose: 600 mg Morphine Sulfate (Morphine) 2 mg IVPUSH Q2H PRN PRN Reason: Breakthrough Pain Last Admin: 11/27/19 14:35 Dose: 2 mg Atorvastatin 10 Mg (Pt's Own Med) 0 mg PO DAILY [facility] Last Admin: 11/27/19 10:30 Dose: 10 mg Tiotropium Pt's Own (Med) 0 puff INH DAILY [facility] Last Admin: 11/27/19 10:53 Dose: 1 puff Advair Diskus 250-50 (Pt's Own Med) 0 each INH BID [facility] Last Admin: 11/27/19 20:16 Dose: 1 each Sodium Chloride (Saline Flush) 10 ml FLUSH ASDIRECTED PRN PRN Reason: Keep Vein Open Last Admin: 11/27/19 02:59 Dose: 10 ml Sodium Chloride (Saline Flush) 10 ml FLUSH ASDIRECTED PRN PRN Reason: Keep Vein Open - Exam General: Alert, Oriented HEENT: Pupils Equal, EOMI Lungs: Normal Respiratory Effort, Other (continuous 1-2 chamber air leak, <50mL of SS drainage in last 24 hours) Sepsis Event Note - Evaluation Sepsis Screening Result: No Definite Risk - Focused Exam Vital Signs: Vital Signs Temp Pulse Resp BP Pulse Ox Pulse Ox 11/28/19 05:28 67 93 L 06/01/20 05:11 36.7 C 62 16 135/100 H 95 11/28/19 00:16 36.6 C 66 126/100 H 94 L 11/28/19 00:00 16 11/27/19 20:29 95 11/27/19 19:47 36.9 C 76 20 111/88 94 L Date Exam was Performed: 11/28/19 Time Exam was Performed: 07:22 - Problem List & Annotations (1) Pneumothorax, left SNOMED Code(s): 840202065 Code(s): J93.9 - PNEUMOTHORAX, UNSPECIFIED Status: Acute Current Visit: Yes - Problem List Review Problem List Initiated/Reviewed/Updated: Yes - My Orders Last 24 Hours: Active Orders 24 hr Category Date Time Status Communication Order [RC] BID Care 11/27/19 08:00 Active Regular Diet [DIET] Diet 11/27/19 Breakfast Active Chest 1V-Tube Placement Chk NC [CR] DAILY Exams 11/28/19 07:30 Ordered Chest 1V-Tube Placement Chk NC [CR] DAILY Exams 11/29/19 07:30 Ordered Chest 1V-Tube Placement Chk NC [CR] DAILY Exams 11/30/19 07:30 Ordered Chest 1V-Tube Placement Chk NC [CR] DAILY Exams 12/01/19 07:30 Ordered Albuterol [Proventil HFA] Med 11/27/19 09:30 Active 0 gm INH Q4HR PRN Benzocaine/Cetylpyrd/Menthol [Cepacol Sore Throat] Med 11/27/19 09:53 Active 1 lozenge MUCMEM Q2H PRN Heparin Sodium Med 11/27/19 16:00 Active 5,000 units SUBCUT Q8H Ibuprofen [Motrin] Med 11/27/19 09:52 Active 600 mg PO Q6H PRN Morphine Med 11/27/19 09:54 Active 2 mg IVPUSH Q2H PRN Non-Formulary Medication [NF Drug] Med 11/27/19 10:30 Active 0 each INH BID Tiotropium Med 11/27/19 09:45 Active 0 puff INH DAILY atorvaSTATin Med 11/27/19 09:45 Active 0 mg PO DAILY Medication Orders Acetaminophen (Tylenol) 975 mg PO Q4H PRN PRN Reason: Pain Last Admin: 11/28/19 05:35 Dose: 975 mg Admin: 11/27/19 19:58 Dose: 975 mg Admin: 11/27/19 05:09 Dose: 975 mg Albuterol (Proventil Hfa) 0 gm INH Q4HR PRN PRN Reason: Shortness of Breath Benzocaine/Menthol (Cepacol Sore Throat) 1 lozenge MUCMEM Q2H PRN PRN Reason: Sore Throat Last Admin: 11/28/19 00:17 Dose: 1 lozenge Admin: 11/27/19 20:23 Dose: 1 lozenge Admin: 11/27/19 14:35 Dose: 1 lozenge Admin: 11/27/19 10:59 Dose: 1 lozenge Heparin Sodium (Porcine) (Heparin Sodium) 5,000 units SUBCUT Q8H [facility] Last Admin: 11/28/19 00:17 Dose: 5,000 units Admin: 11/27/19 15:59 Dose: 5,000 units Ibuprofen (Motrin) 600 mg PO Q6H PRN PRN Reason: Pain (mild 1-3) Last Admin: 11/28/19 00:17 Dose: 600 mg Admin: 11/27/19 15:58 Dose: 600 mg Morphine Sulfate (Morphine) 2 mg IVPUSH Q2H PRN PRN Reason: Breakthrough Pain Last Admin: 11/27/19 14:35 Dose: 2 mg Admin: 11/27/19 10:29 Dose: 2 mg Atorvastatin 10 Mg (Pt's Own Med) 0 mg PO DAILY [facility] Last Admin: 11/27/19 10:30 Dose: 10 mg Tiotropium Pt's Own (Med) 0 puff INH DAILY [facility] Last Admin: 11/27/19 10:53 Dose: 1 puff Advair Diskus 250-50 (Pt's Own Med) 0 each INH BID [facility] Last Admin: 11/27/19 20:16 Dose: 1 each Admin: 11/27/19 10:52 Dose: 1 each Sodium Chloride (Saline Flush) 10 ml FLUSH ASDIRECTED PRN PRN Reason: Keep Vein Open Last Admin: 11/27/19 02:59 Dose: 10 ml Sodium Chloride (Saline Flush) 10 ml FLUSH ASDIRECTED PRN PRN Reason: Keep Vein Open - Assessment Assessment (Free Text/Narrative):: 64 y/o gentleman with left pneumothorax - Plan Plan (Free Text/Narrative):: - continue chest tube to suction - daily chest x-ray - Leukocytosis improved - regular diet - continue current pain regimen Minoo Caceres MD General surgery
[2019-11-28] MEDS: TIOTROPIUM INH SCH (08:05)
[2019-11-28] MEDS: ADVAIR INH SCH ×2 (08:06→20:06)
--- NOTE | 2019-11-28 08:07 | CR ---
Chest: Portable view of the chest was obtained. Comparison: Prior chest x-ray of 11/27/19. Diffuse air is noted within the chest wall as well as within the base of the neck on both sides. Amount of air has slightly decreased from previous exam. No pneumothorax is appreciated. Lungs show no acute parenchymal change. Heart size and mediastinum are normal. Impression: 1. Chest wall air as well as air within the base of the neck on both sides. Findings have slightly improved from previous exam. 2. No pneumothorax is appreciated. 3. No acute parenchymal change is seen within either lung. Diagnostic code #3 This report was dictated in MDT
[2019-11-28] MEDS: ATORVASTATIN 10 MG PO SCH (08:11)
[2019-11-29] MEDS: Ibuprofen 600 MG Tab PO PRN ×4 (00:08→23:53)
[2019-11-29] MEDS: Heparin Sodium 5,000 Units/ML Vial SUBCUT SCH ×4 (00:08→23:53)
[2019-11-29] MEDS: Benzocaine/Cetylpyridinium/Menthol Lozenge MUCMEM PRN (02:12)
[2019-11-29] MEDS: Acetaminophen 325 MG Tab PO PRN ×3 (04:32→20:32)
--- NOTE | 2019-11-29 07:51 | PCM.SURGPN ---
- General Info Date of Service: 11/29/19 Functional Status: Reports: Pain Controlled, Tolerating Diet, Other (worsened subcutaneous emphysema on the left side) - Patient Data Vitals - Most Recent: Last Vital Signs Temp 36.8 C 11/29/19 04:30 Pulse 72 11/29/19 04:30 Resp 16 11/29/19 04:30 BP 105/83 11/29/19 04:30 Pulse Ox 95 11/29/19 04:30 Weight - Most Recent: 87.453 kg I&O - Last 24 Hours: Intake & Output 11/28/19 11/29/19 11/29/19 22:59 06:59 14:59 Intake Total 1730 200 Output Total 900 810 Balance 830 -610 Med Orders - Current: Current Medications Acetaminophen (Tylenol) 975 mg PO Q4H PRN PRN Reason: Pain Last Admin: 11/29/19 04:32 Dose: 975 mg Albuterol (Proventil Hfa) 0 gm INH Q4HR PRN PRN Reason: Shortness of Breath Benzocaine/Menthol (Cepacol Sore Throat) 1 lozenge MUCMEM Q2H PRN PRN Reason: Sore Throat Last Admin: 11/29/19 02:12 Dose: 1 lozenge Heparin Sodium (Porcine) (Heparin Sodium) 5,000 units SUBCUT Q8H [facility] Last Admin: 11/29/19 00:08 Dose: 5,000 units Ibuprofen (Motrin) 600 mg PO Q6H PRN PRN Reason: Pain (mild 1-3) Last Admin: 11/29/19 00:08 Dose: 600 mg Morphine Sulfate (Morphine) 2 mg IVPUSH Q2H PRN PRN Reason: Breakthrough Pain Last Admin: 11/27/19 14:35 Dose: 2 mg Atorvastatin 10 Mg (Pt's Own Med) 0 mg PO DAILY [facility] Last Admin: 11/28/19 08:11 Dose: 10 mg Tiotropium Pt's Own (Med) 0 puff INH DAILY [facility] Last Admin: 11/28/19 08:05 Dose: 1 puff Advair Diskus 250-50 (Pt's Own Med) 0 each INH BID [facility] Last Admin: 11/28/19 20:06 Dose: 1 each Sodium Chloride (Saline Flush) 10 ml FLUSH ASDIRECTED PRN PRN Reason: Keep Vein Open Last Admin: 11/27/19 02:59 Dose: 10 ml Sodium Chloride (Saline Flush) 10 ml FLUSH ASDIRECTED PRN PRN Reason: Keep Vein Open - Exam Wound/Incisions: Dressing Dry and Intact Quality Assessment: No: Supplemental Oxygen General: Alert, Oriented Lungs: Normal Respiratory Effort, Other (minimal SS drainage in chest tube. Air leak present in chest tube, continued to suction) Sepsis Event Note - Evaluation Sepsis Screening Result: No Definite Risk - Focused Exam Vital Signs: Vital Signs Temp Pulse Resp BP Pulse Ox Pulse Ox 11/29/19 04:30 36.8 C 72 16 105/83 95 11/29/19 00:13 36.6 C 64 18 114/72 93 L 11/28/19 21:15 36.6 C 76 18 109/93 H 92 L 11/28/19 20:06 93 L Date Exam was Performed: 11/29/19 Time Exam was Performed: 11:58 - Problem List & Annotations (1) Pneumothorax, left SNOMED Code(s): 483297402 Code(s): J93.9 - PNEUMOTHORAX, UNSPECIFIED Status: Acute Current Visit: Yes - Problem List Review Problem List Initiated/Reviewed/Updated: Yes - My Orders Last 24 Hours: Active Orders 24 hr Category Date Time Status Patient Status [ADT] Routine ADT 11/28/19 10:35 Active Chest 1V-Tube Placement Chk NC [CR] DAILY Exams 11/29/19 07:30 Taken Chest 1V-Tube Placement Chk NC [CR] DAILY Exams 11/30/19 07:30 Ordered Chest 1V-Tube Placement Chk NC [CR] DAILY Exams 12/01/19 07:30 Ordered Medication Orders Acetaminophen (Tylenol) 975 mg PO Q4H PRN PRN Reason: Pain Last Admin: 11/29/19 04:32 Dose: 975 mg Admin: 11/28/19 21:10 Dose: 975 mg Admin: 11/28/19 12:58 Dose: 975 mg Admin: 11/28/19 05:35 Dose: 975 mg Admin: 11/27/19 19:58 Dose: 975 mg Admin: 11/27/19 05:09 Dose: 975 mg Albuterol (Proventil Hfa) 0 gm INH Q4HR PRN PRN Reason: Shortness of Breath Benzocaine/Menthol (Cepacol Sore Throat) 1 lozenge MUCMEM Q2H PRN PRN Reason: Sore Throat Last Admin: 11/29/19 02:12 Dose: 1 lozenge Admin: 11/28/19 00:17 Dose: 1 lozenge Admin: 11/27/19 20:23 Dose: 1 lozenge Admin: 11/27/19 14:35 Dose: 1 lozenge Admin: 11/27/19 10:59 Dose: 1 lozenge Heparin Sodium (Porcine) (Heparin Sodium) 5,000 units SUBCUT Q8H [facility] Last Admin: 11/29/19 00:08 Dose: 5,000 units Admin: 11/28/19 16:38 Dose: 5,000 units Admin: 11/28/19 08:11 Dose: 5,000 units Admin: 11/28/19 00:17 Dose: 5,000 units Admin: 11/27/19 15:59 Dose: 5,000 units Ibuprofen (Motrin) 600 mg PO Q6H PRN PRN Reason: Pain (mild 1-3) Last Admin: 11/29/19 00:08 Dose: 600 mg Admin: 11/28/19 16:37 Dose: 600 mg Admin: 11/28/19 08:10 Dose: 600 mg Admin: 11/28/19 00:17 Dose: 600 mg Admin: 11/27/19 15:58 Dose: 600 mg Morphine Sulfate (Morphine) 2 mg IVPUSH Q2H PRN PRN Reason: Breakthrough Pain Last Admin: 11/27/19 14:35 Dose: 2 mg Admin: 11/27/19 10:29 Dose: 2 mg Atorvastatin 10 Mg (Pt's Own Med) 0 mg PO DAILY [facility] Last Admin: 11/28/19 08:11 Dose: 10 mg Admin: 11/27/19 10:30 Dose: 10 mg Tiotropium Pt's Own (Med) 0 puff INH DAILY [facility] Last Admin: 11/28/19 08:05 Dose: 1 puff Admin: 11/27/19 10:53 Dose: 1 puff Advair Diskus 250-50 (Pt's Own Med) 0 each INH BID [facility] Last Admin: 11/28/19 20:06 Dose: 1 each Admin: 11/28/19 08:06 Dose: 1 each Admin: 11/27/19 20:16 Dose: 1 each Admin: 11/27/19 10:52 Dose: 1 each Sodium Chloride (Saline Flush) 10 ml FLUSH ASDIRECTED PRN PRN Reason: Keep Vein Open Last Admin: 11/27/19 02:59 Dose: 10 ml Sodium Chloride (Saline Flush) 10 ml FLUSH ASDIRECTED PRN PRN Reason: Keep Vein Open - Assessment Assessment (Free Text/Narrative):: 64 y/o male with left pneumothorax - worsened subcutaneous emphysema overnight, likely due to kinking of chest tube. Also suction on tube was elevated above recommended amount. Nursing and patient notified to monitor tube for kinking and suction was adjusted - continue to suction - daily chest x-ray - regular diet - continue current pain control Pt anticipated to need longer than 96h hospital stay due to slow healing of pneumothorax Minoo Caceres MD General surgery
--- NOTE | 2019-11-29 07:59 | CR ---
Chest: Portable view of the chest was obtained. Comparison: Prior chest x-ray of 11/28/19. Heart size and mediastinum are normal. Diffuse subcutaneous air is seen. This finding is fairly stable from previous exam. No discrete pneumothorax is appreciated. No definite acute parenchymal change is seen within the lungs. Heart size and mediastinum are normal. Impression: 1. Diffuse subcutaneous air within the chest. No appreciable change from previous study. 2. No definite pneumothorax is seen. 3. No acute parenchymal change is appreciated. Diagnostic code #3 This report was dictated in MDT
[2019-11-29] MEDS: ADVAIR INH SCH ×2 (08:01→20:35)
[2019-11-29] MEDS: TIOTROPIUM INH SCH (08:01)
[2019-11-29] MEDS: Simvastatin 10 MG Tab PO SCH (12:11)
[2019-11-29] MEDS: ATORVASTATIN 10 MG PO SCH (12:13)
[2019-11-30] MEDS: Acetaminophen 325 MG Tab PO PRN (04:07)
--- NOTE | 2019-11-30 07:52 | CR ---
Chest: Portable view of the chest was obtained. Comparison: Prior chest x-ray of 11/29/19. Diffuse subcutaneous air is noted within the left chest and neck. Heart size and mediastinum are stable. No discrete pneumothorax is seen. Lungs are grossly clear. Bony structures are grossly intact. Impression: 1. Stable subcutaneous air within the left chest and neck. 2. No definite pneumothorax or acute parenchymal change is seen within either lung. Diagnostic code #3 This report was dictated in MDT
[2019-11-30] MEDS: TIOTROPIUM INH SCH (08:06)
[2019-11-30] MEDS: ADVAIR INH SCH ×2 (08:06→20:59)
--- NOTE | 2019-11-30 08:10 | PCM.SURGPN ---
- General Info Date of Service: 11/30/19 Functional Status: Reports: Pain Controlled, Tolerating Diet, Ambulating, Urinating, Other (Pt reports breathing feels good today. No other complaints) - Patient Data Vitals - Most Recent: Last Vital Signs Temp 36.7 C 11/30/19 03:54 Pulse 66 11/30/19 03:54 Resp 16 11/30/19 03:54 BP 130/66 11/30/19 03:54 Pulse Ox 96 11/30/19 03:54 Weight - Most Recent: 87.725 kg I&O - Last 24 Hours: Intake & Output 11/29/19 11/30/19 11/30/19 22:59 06:59 14:59 Intake Total 2260 150 Output Total 1100 750 Balance 1160 -600 Med Orders - Current: Current Medications Acetaminophen (Tylenol) 975 mg PO Q4H PRN PRN Reason: Pain Last Admin: 11/30/19 04:07 Dose: 975 mg Albuterol (Proventil Hfa) 0 gm INH Q4HR PRN PRN Reason: Shortness of Breath Benzocaine/Menthol (Cepacol Sore Throat) 1 lozenge MUCMEM Q2H PRN PRN Reason: Sore Throat Last Admin: 11/29/19 02:12 Dose: 1 lozenge Heparin Sodium (Porcine) (Heparin Sodium) 5,000 units SUBCUT Q8H [facility] Last Admin: 11/29/19 23:53 Dose: 5,000 units Ibuprofen (Motrin) 600 mg PO Q6H PRN PRN Reason: Pain (mild 1-3) Last Admin: 11/29/19 23:53 Dose: 600 mg Morphine Sulfate (Morphine) 2 mg IVPUSH Q2H PRN PRN Reason: Breakthrough Pain Last Admin: 11/27/19 14:35 Dose: 2 mg Tiotropium Pt's Own (Med) 0 puff INH DAILY [facility] Last Admin: 11/30/19 08:06 Dose: 1 puff Advair Diskus 250-50 (Pt's Own Med) 0 each INH BID [facility] Last Admin: 11/30/19 08:06 Dose: 1 each Simvastatin (Zocor) 10 mg PO DAILY [facility] Last Admin: 11/29/19 12:11 Dose: 10 mg Sodium Chloride (Saline Flush) 10 ml FLUSH ASDIRECTED PRN PRN Reason: Keep Vein Open Last Admin: 11/27/19 02:59 Dose: 10 ml Sodium Chloride (Saline Flush) 10 ml FLUSH ASDIRECTED PRN PRN Reason: Keep Vein Open Discontinued Medications Atorvastatin 10 Mg (Pt's Own Med) 0 mg PO DAILY [facility] Last Admin: 11/29/19 12:13 Dose: Not Given - Exam Wound/Incisions: Dressing Dry and Intact Quality Assessment: Supplemental Oxygen General: Alert, Oriented HEENT: EOMI Lungs: Normal Respiratory Effort, Other (decreased air leak, now intermittent on suction) Sepsis Event Note - Evaluation Sepsis Screening Result: No Definite Risk - Focused Exam Vital Signs: Vital Signs Temp Pulse Resp BP Pulse Ox Pulse Ox 11/30/19 03:54 36.7 C 66 16 130/66 96 11/29/19 23:50 36.8 C 85 18 101/73 92 L 11/29/19 20:47 93 L Date Exam was Performed: 11/30/19 Time Exam was Performed: 12:29 - Problem List & Annotations (1) Pneumothorax, left SNOMED Code(s): 842647379 Code(s): J93.9 - PNEUMOTHORAX, UNSPECIFIED Status: Acute Current Visit: Yes - Problem List Review Problem List Initiated/Reviewed/Updated: Yes - My Orders Last 24 Hours: Active Orders 24 hr Category Date Time Status Chest 1V Frontal [CR] Routine Exams 12/01/19 07:30 Ordered Simvastatin [Zocor] Med 11/29/19 12:00 Active 10 mg PO DAILY Medication Orders Acetaminophen (Tylenol) 975 mg PO Q4H PRN PRN Reason: Pain Last Admin: 11/30/19 04:07 Dose: 975 mg Admin: 11/29/19 20:32 Dose: 975 mg Admin: 11/29/19 12:10 Dose: 975 mg Admin: 11/29/19 04:32 Dose: 975 mg Admin: 11/28/19 21:10 Dose: 975 mg Admin: 11/28/19 12:58 Dose: 975 mg Admin: 11/28/19 05:35 Dose: 975 mg Admin: 11/27/19 19:58 Dose: 975 mg Admin: 11/27/19 05:09 Dose: 975 mg Albuterol (Proventil Hfa) 0 gm INH Q4HR PRN PRN Reason: Shortness of Breath Benzocaine/Menthol (Cepacol Sore Throat) 1 lozenge MUCMEM Q2H PRN PRN Reason: Sore Throat Last Admin: 11/29/19 02:12 Dose: 1 lozenge Admin: 11/28/19 00:17 Dose: 1 lozenge Admin: 11/27/19 20:23 Dose: 1 lozenge Admin: 11/27/19 14:35 Dose: 1 lozenge Admin: 11/27/19 10:59 Dose: 1 lozenge Heparin Sodium (Porcine) (Heparin Sodium) 5,000 units SUBCUT Q8H [facility] Last Admin: 11/29/19 23:53 Dose: 5,000 units Admin: 11/29/19 16:38 Dose: 5,000 units Admin: 11/29/19 08:17 Dose: 5,000 units Admin: 11/29/19 00:08 Dose: 5,000 units Admin: 11/28/19 16:38 Dose: 5,000 units Admin: 11/28/19 08:11 Dose: 5,000 units Admin: 11/28/19 00:17 Dose: 5,000 units Admin: 11/27/19 15:59 Dose: 5,000 units Ibuprofen (Motrin) 600 mg PO Q6H PRN PRN Reason: Pain (mild 1-3) Last Admin: 11/29/19 23:53 Dose: 600 mg Admin: 11/29/19 16:37 Dose: 600 mg Admin: 11/29/19 08:17 Dose: 600 mg Admin: 11/29/19 00:08 Dose: 600 mg Admin: 11/28/19 16:37 Dose: 600 mg Admin: 11/28/19 08:10 Dose: 600 mg Admin: 11/28/19 00:17 Dose: 600 mg Admin: 11/27/19 15:58 Dose: 600 mg Morphine Sulfate (Morphine) 2 mg IVPUSH Q2H PRN PRN Reason: Breakthrough Pain Last Admin: 11/27/19 14:35 Dose: 2 mg Admin: 11/27/19 10:29 Dose: 2 mg Tiotropium Pt's Own (Med) 0 puff INH DAILY [facility] Last Admin: 11/30/19 08:06 Dose: 1 puff Admin: 11/29/19 08:01 Dose: 1 puff Admin: 11/28/19 08:05 Dose: 1 puff Admin: 11/27/19 10:53 Dose: 1 puff Advair Diskus 250-50 (Pt's Own Med) 0 each INH BID [facility] Last Admin: 11/30/19 08:06 Dose: 1 each Admin: 11/29/19 20:35 Dose: 1 each Admin: 11/29/19 08:01 Dose: 1 each Admin: 11/28/19 20:06 Dose: 1 each Admin: 11/28/19 08:06 Dose: 1 each Admin: 11/27/19 20:16 Dose: 1 each Admin: 11/27/19 10:52 Dose: 1 each Simvastatin (Zocor) 10 mg PO DAILY [facility] Last Admin: 11/29/19 12:11 Dose: 10 mg Sodium Chloride (Saline Flush) 10 ml FLUSH ASDIRECTED PRN PRN Reason: Keep Vein Open Last Admin: 11/27/19 02:59 Dose: 10 ml Sodium Chloride (Saline Flush) 10 ml FLUSH ASDIRECTED PRN PRN Reason: Keep Vein Open - Assessment Assessment (Free Text/Narrative):: 64 y/o male with pneumothorax, Improved - Plan Plan (Free Text/Narrative):: - continue to suction for intermittent air leak. Monitor subcutaneous emphysema - regular diet - ambulate in room while attached to suction - monitor for kinking in the tube Minoo Caceres MD General Surgery
[2019-11-30] MEDS: Simvastatin 10 MG Tab PO SCH (08:59)
[2019-11-30] MEDS: Heparin Sodium 5,000 Units/ML Vial SUBCUT SCH ×3 (08:59→23:37)
[2019-11-30] MEDS: Nicotine 21 MG/24 Hr Patch TRDERM SCH (14:06)
[2019-11-30] MEDS: Benzocaine/Cetylpyridinium/Menthol Lozenge MUCMEM PRN (16:14)
[2019-11-30] MEDS: Ibuprofen 600 MG Tab PO PRN (20:52)
[2019-12-01] MEDS: TIOTROPIUM INH SCH (08:04)
[2019-12-01] MEDS: ADVAIR INH SCH (08:04)
--- NOTE | 2019-12-01 08:46 | CT ---
CT chest Technique: Multiple axial sections through the chest were obtained. Intravenous contrast not utilized. Comparison: Prior chest x-ray of 11/30/19. Findings: Small pneumothorax is noted on the left side. Diffuse emphysematous change is noted. Multiple subpleural blebs are noted within both upper lungs. No acute parenchymal change is otherwise seen. Diffuse subcutaneous air is noted within the anterior portions of both chest extending into the neck as well as within the lateral left chest wall. Subcutaneous air extends posteriorly within the chest wall. No right-sided pneumothorax is seen. Atherosclerotic change is noted within the thoracic aorta. No aneurysm is seen. Small amount of mediastinal air is seen. Mediastinum shows no adenopathy. No pericardial thickening is seen. Moderate coronary artery calcification is seen. Visualized upper abdominal structures shows no discrete abnormality. Bone window settings were reviewed which shows no acute osseous finding. Impression: 1. Small left-sided pneumothorax. 2. Diffuse emphysematous change. Numerous subpleural blebs are seen within both lungs. 3. Mild mediastinal air is seen. Diffuse subcutaneous air seen within the chest wall. 4. Other findings believed to be nonacute as described above. Diagnostic code #3 This report was dictated in MDT
[2019-12-01] MEDS: Simvastatin 10 MG Tab PO SCH (08:53)
[2019-12-01] MEDS: Heparin Sodium 5,000 Units/ML Vial SUBCUT SCH ×2 (08:53→16:20)
[2019-12-01] MEDS: Nicotine 21 MG/24 Hr Patch TRDERM SCH (14:09)
--- NOTE | 2019-12-01 15:09 | PCM.SURGPN ---
- General Info Date of Service: 12/01/19 Functional Status: Reports: Pain Controlled, Tolerating Diet, Ambulating, Urinating, Other (no new subcutaneous emphysema. pt has no new complaints) - Patient Data Vitals - Most Recent: Last Vital Signs Temp 36.8 C 12/01/19 11:14 Pulse 64 12/01/19 11:14 Resp 20 12/01/19 11:14 BP 115/91 H 12/01/19 11:14 Pulse Ox 90 L 12/01/19 11:14 Weight - Most Recent: 87.589 kg I&O - Last 24 Hours: Intake & Output 12/01/19 12/01/19 12/01/19 06:59 14:59 22:59 Intake Total 240 820 Output Total 1778 600 Balance -1538 220 Med Orders - Current: Current Medications Acetaminophen (Tylenol) 975 mg PO Q4H PRN PRN Reason: Pain Last Admin: 11/30/19 04:07 Dose: 975 mg Albuterol (Proventil Hfa) 0 gm INH Q4HR PRN PRN Reason: Shortness of Breath Benzocaine/Menthol (Cepacol Sore Throat) 1 lozenge MUCMEM Q2H PRN PRN Reason: Sore Throat Last Admin: 11/30/19 16:14 Dose: 1 lozenge Heparin Sodium (Porcine) (Heparin Sodium) 5,000 units SUBCUT Q8H [facility] Last Admin: 12/01/19 08:53 Dose: 5,000 units Ibuprofen (Motrin) 600 mg PO Q6H PRN PRN Reason: Pain (mild 1-3) Last Admin: 11/30/19 20:52 Dose: 600 mg Miscellaneous Information (Remove Patch) 1 ea TRDERM Q24H [facility] Last Admin: 12/01/19 14:10 Dose: Not Given Morphine Sulfate (Morphine) 2 mg IVPUSH Q2H PRN PRN Reason: Breakthrough Pain Last Admin: 11/27/19 14:35 Dose: 2 mg Nicotine (Habitrol) 21 mg TRDERM Q24H [facility] Last Admin: 12/01/19 14:09 Dose: Not Given Tiotropium Pt's Own (Med) 0 puff INH DAILY [facility] Last Admin: 12/01/19 08:04 Dose: 1 puff Advair Diskus 250-50 (Pt's Own Med) 0 each INH BID [facility] Last Admin: 12/01/19 08:04 Dose: 1 each Simvastatin (Zocor) 10 mg PO DAILY [facility] Last Admin: 12/01/19 08:53 Dose: 10 mg Sodium Chloride (Saline Flush) 10 ml FLUSH ASDIRECTED PRN PRN Reason: Keep Vein Open Discontinued Medications Atorvastatin 10 Mg (Pt's Own Med) 0 mg PO DAILY [facility] Last Admin: 11/29/19 12:13 Dose: Not Given Sodium Chloride (Saline Flush) 10 ml FLUSH ASDIRECTED PRN PRN Reason: Keep Vein Open Last Admin: 11/27/19 02:59 Dose: 10 ml - Exam Wound/Incisions: Dressing Dry and Intact General: Alert, Oriented HEENT: EOMI Lungs: Normal Respiratory Effort (worsened air leak), Other Sepsis Event Note - Evaluation Sepsis Screening Result: No Definite Risk - Focused Exam Vital Signs: Vital Signs Temp Pulse Resp BP Pulse Ox Pulse Ox 12/01/19 11:14 36.8 C 64 20 115/91 H 90 L 12/01/19 08:05 95 12/01/19 07:39 36.6 C 63 20 122/69 93 L 12/01/19 04:23 36.7 C 64 16 115/79 92 L Date Exam was Performed: 12/01/19 Time Exam was Performed: 15:15 - Problem List & Annotations (1) Pneumothorax, left SNOMED Code(s): 011053727 Code(s): J93.9 - PNEUMOTHORAX, UNSPECIFIED Status: Acute Current Visit: Yes - Problem List Review Problem List Initiated/Reviewed/Updated: Yes - My Orders Last 24 Hours: Active Orders 24 hr Category Date Time Status Remove Patch Med 12/01/19 14:00 Active 1 ea TRDERM Q24H Medication Orders Acetaminophen (Tylenol) 975 mg PO Q4H PRN PRN Reason: Pain Last Admin: 11/30/19 04:07 Dose: 975 mg Admin: 11/29/19 20:32 Dose: 975 mg Admin: 11/29/19 12:10 Dose: 975 mg Admin: 11/29/19 04:32 Dose: 975 mg Admin: 11/28/19 21:10 Dose: 975 mg Admin: 11/28/19 12:58 Dose: 975 mg Admin: 11/28/19 05:35 Dose: 975 mg Admin: 11/27/19 19:58 Dose: 975 mg Admin: 11/27/19 05:09 Dose: 975 mg Albuterol (Proventil Hfa) 0 gm INH Q4HR PRN PRN Reason: Shortness of Breath Benzocaine/Menthol (Cepacol Sore Throat) 1 lozenge MUCMEM Q2H PRN PRN Reason: Sore Throat Last Admin: 11/30/19 16:14 Dose: 1 lozenge Admin: 11/29/19 02:12 Dose: 1 lozenge Admin: 11/28/19 00:17 Dose: 1 lozenge Admin: 11/27/19 20:23 Dose: 1 lozenge Admin: 11/27/19 14:35 Dose: 1 lozenge Admin: 11/27/19 10:59 Dose: 1 lozenge Heparin Sodium (Porcine) (Heparin Sodium) 5,000 units SUBCUT Q8H [facility] Last Admin: 12/01/19 08:53 Dose: 5,000 units Admin: 11/30/19 23:37 Dose: 5,000 units Admin: 11/30/19 15:47 Dose: 5,000 units Admin: 11/30/19 08:59 Dose: 5,000 units Admin: 11/29/19 23:53 Dose: 5,000 units Admin: 11/29/19 16:38 Dose: 5,000 units Admin: 11/29/19 08:17 Dose: 5,000 units Admin: 11/29/19 00:08 Dose: 5,000 units Admin: 11/28/19 16:38 Dose: 5,000 units Admin: 11/28/19 08:11 Dose: 5,000 units Admin: 11/28/19 00:17 Dose: 5,000 units Admin: 11/27/19 15:59 Dose: 5,000 units Ibuprofen (Motrin) 600 mg PO Q6H PRN PRN Reason: Pain (mild 1-3) Last Admin: 11/30/19 20:52 Dose: 600 mg Admin: 11/29/19 23:53 Dose: 600 mg Admin: 11/29/19 16:37 Dose: 600 mg Admin: 11/29/19 08:17 Dose: 600 mg Admin: 11/29/19 00:08 Dose: 600 mg Admin: 11/28/19 16:37 Dose: 600 mg Admin: 11/28/19 08:10 Dose: 600 mg Admin: 11/28/19 00:17 Dose: 600 mg Admin: 11/27/19 15:58 Dose: 600 mg Miscellaneous Information (Remove Patch) 1 ea TRDERM Q24H [facility] Last Admin: 12/01/19 14:10 Dose: Morphine Sulfate (Morphine) 2 mg IVPUSH Q2H PRN PRN Reason: Breakthrough Pain Last Admin: 11/27/19 14:35 Dose: 2 mg Admin: 11/27/19 10:29 Dose: 2 mg Nicotine (Habitrol) 21 mg TRDERM Q24H [facility] Last Admin: 12/01/19 14:09 Dose: Not Given Admin: 11/30/19 14:06 Dose: 21 mg Tiotropium Pt's Own (Med) 0 puff INH DAILY [facility] Last Admin: 12/01/19 08:04 Dose: 1 puff Admin: 11/30/19 08:06 Dose: 1 puff Admin: 11/29/19 08:01 Dose: 1 puff Admin: 11/28/19 08:05 Dose: 1 puff Admin: 11/27/19 10:53 Dose: 1 puff Advair Diskus 250-50 (Pt's Own Med) 0 each INH BID [facility] Last Admin: 12/01/19 08:04 Dose: 1 each Admin: 11/30/19 20:59 Dose: 1 each Admin: 11/30/19 08:06 Dose: 1 each Admin: 11/29/19 20:35 Dose: 1 each Admin: 11/29/19 08:01 Dose: 1 each Admin: 11/28/19 20:06 Dose: 1 each Admin: 11/28/19 08:06 Dose: 1 each Admin: 11/27/19 20:16 Dose: 1 each Admin: 11/27/19 10:52 Dose: 1 each Simvastatin (Zocor) 10 mg PO DAILY [facility] Last Admin: 12/01/19 08:53 Dose: 10 mg Admin: 11/30/19 08:59 Dose: 10 mg Admin: 11/29/19 12:11 Dose: 10 mg Sodium Chloride (Saline Flush) 10 ml FLUSH ASDIRECTED PRN PRN Reason: Keep Vein Open - Assessment Assessment (Free Text/Narrative):: 64 y/o gentleman with spontaneous pneumothorax, persistent air leak - Plan Plan (Free Text/Narrative):: - obtained CT chest today. Evidence of bleb disease. Case discussed and reviewed with cardiothoracic surgeon, Dr. Diaz, who recommends surgery for bleb resection - continue chest tube to suction Plan for OR in am. Will transfer to [facility]. Minoo Caceres MD General surgery
--- NOTE | 2019-12-01 16:44 | PCM.DCSUM1 ---
Discharge Summary - Hospital Course Free Text/Narrative:: The patient is a 64-year-old gentleman who presented with a left-sided pneumothorax. His chest tube was placed to suction. On hospital day 2 he was noted to have increase in his subcutaneous emphysema. It was thought that perhaps this was due to tube kinking. On hospital day 3 the patient's air leak appeared to be resolving. On hospital day 4, however the patient had worsening of his airleak. He was evaluated with a CT chest which showed residual pneumothorax and bleb disease. The case was discussed with cardiothoracic surgery in [place]. The patient was recommended to have surgery. Transfer was arranged and the patient was discharged to [place]. Diagnosis: Stroke: No Modified Lissette Scale: No Signif.Disability Despite Sympt.Able to Carry Out Usual Act./Duties Modified Lissette Scale Score: 1 - Discharge Data Discharge Date: 12/01/19 Discharge Disposition: Admitted As Inpatient 65 Condition: Good - Referral to Home Health Primary Care Physician: PCP Not In Area - Discharge Diagnosis/Problem(s) (1) Pneumothorax, left SNOMED Code(s): 266989938 ICD Code: J93.9 - PNEUMOTHORAX, UNSPECIFIED Status: Acute Current Visit: Yes - Discharge Plan *PRESCRIPTION DRUG MONITORING PROGRAM REVIEWED*: Not Applicable *COPY OF PRESCRIPTION DRUG MONITORING REPORT IN PATIENT [facility]: Not Applicable Home Medications: Home Meds Fluticasone/Salmeterol [Advair 250-50] 1 puff INH BID #1 diskus 11/24/19 [Rx] Tiotropium [Spiriva HandiHaler] 1 puff INH DAILY 11/24/19 [History] atorvaSTATin [Lipitor] 10 mg PO DAILY 11/24/19 [History] Albuterol [Proair HFA] 2 puff INH Q4HR PRN 11/27/19 [History] Acetaminophen [Tylenol] 975 mg PO Q4H PRN tablet 12/01/19 [Rx] Heparin Sodium 5,000 units SUBCUT Q8H vial 12/01/19 [Rx] Ibuprofen [Motrin] 600 mg PO Q6H PRN tablet 12/01/19 [Rx] Morphine 2 mg IVPUSH Q2H PRN syringe 12/01/19 [Rx] Non-Formulary Medication [NF Drug] 0 each INH BID each 12/01/19 [Rx] Patient Handouts: Pneumothorax, Steps to Quit Smoking, Chest Tube One-Way Valve Home Guide Forms: ED Department Discharge Referrals: DR Axel [Other] (Patient states that he see's a Dr. Reyna in [facility] , patient is encouraged to see Doctor when he gets back home.) Smoking, Cessation [Other] - 12/21/19 2:00 pm (Please call to confirm appt. and to see if patient wants to do over the phone or come into the office. Gabrielle is who you will be seeing.) - Discharge Summary/Plan Comment DC Time >30 min.: Yes - Patient Data Vitals - Most Recent: Last Vital Signs Temp 36.8 C 12/01/19 16:02 Pulse 73 12/01/19 16:02 Resp 20 12/01/19 16:02 BP 117/83 12/01/19 16:02 Pulse Ox 94 L 12/01/19 16:02 Weight - Most Recent: 87.589 kg I&O - Last 24 hours: Intake & Output 12/01/19 12/01/19 12/01/19 06:59 14:59 22:59 Intake Total 240 820 660 Output Total 1778 600 Balance -1538 220 660 Med Orders - Current: Current Medications Acetaminophen (Tylenol) 975 mg PO Q4H PRN PRN Reason: Pain Last Admin: 11/30/19 04:07 Dose: 975 mg Albuterol (Proventil Hfa) 0 gm INH Q4HR PRN PRN Reason: Shortness of Breath Benzocaine/Menthol (Cepacol Sore Throat) 1 lozenge MUCMEM Q2H PRN PRN Reason: Sore Throat Last Admin: 11/30/19 16:14 Dose: 1 lozenge Heparin Sodium (Porcine) (Heparin Sodium) 5,000 units SUBCUT Q8H [facility] Last Admin: 12/01/19 16:20 Dose: 5,000 units Ibuprofen (Motrin) 600 mg PO Q6H PRN PRN Reason: Pain (mild 1-3) Last Admin: 11/30/19 20:52 Dose: 600 mg Miscellaneous Information (Remove Patch) 1 ea TRDERM Q24H [facility] Last Admin: 12/01/19 14:10 Dose: Not Given Morphine Sulfate (Morphine) 2 mg IVPUSH Q2H PRN PRN Reason: Breakthrough Pain Last Admin: 11/27/19 14:35 Dose: 2 mg Nicotine (Habitrol) 21 mg TRDERM Q24H [facility] Last Admin: 12/01/19 14:09 Dose: Not Given Tiotropium Pt's Own (Med) 0 puff INH DAILY [facility] Last Admin: 12/01/19 08:04 Dose: 1 puff Advair Diskus 250-50 (Pt's Own Med) 0 each INH BID [facility] Last Admin: 12/01/19 08:04 Dose: 1 each Simvastatin (Zocor) 10 mg PO DAILY [facility] Last Admin: 12/01/19 08:53 Dose: 10 mg Sodium Chloride (Saline Flush) 10 ml FLUSH ASDIRECTED PRN PRN Reason: Keep Vein Open Discontinued Medications Atorvastatin 10 Mg (Pt's Own Med) 0 mg PO DAILY [facility] Last Admin: 11/29/19 12:13 Dose: Not Given Sodium Chloride (Saline Flush) 10 ml FLUSH ASDIRECTED PRN PRN Reason: Keep Vein Open Last Admin: 11/27/19 02:59 Dose: 10 ml
== END 2019-12-01 18:21 | DRG 201 ==
LOC: JD.ED 02:45 → JD.MS 03:35 → INTOOBSV 03:35 → OBSVTOIN 11-28 10:35 → JD.MS 12-01 14:07
PROVIDERS: ADMIT Surgery; ATTEND Surgery
DX: J93.9 Pneumothorax, unspecified (principal); Z97.8 Presence of other specified devices; H54.7 Unspecified visual loss; J98.2 Interstitial emphysema; E78.00 Pure hypercholesterolemia, unspecified; F41.9 Anxiety disorder, unspecified; F17.200 Nicotine dependence, unspecified, uncomplicated; Z88.2 Allergy status to sulfonamides; Z79.899 Other long term (current) drug therapy; J93.82 Other air leak
CPT/HCPCS: 32551; 36415 ×2; 71045 ×2; 80053; 84484; 85025 ×2; 94640 ×2; 94760; 96372 ×2; 96374; 96376; 99285; A9270 ×18; G0378 ×2; J1644 ×3; J2270 ×2; 71250; 71250-26; 94761; 99283